=== PATIENT | male | born 1955 | race Caucasian/White ===

== ENCOUNTER 2021-05-26 11:15 | Outpatient (REF) | payer MEDICARE, SELFPAY | END 2021-05-26 11:16 | disposition home or self-care (01) | LOC: HO.LAB 11:15 | PROVIDERS: PCP Internal Medicine Medical Oncology; Visit Provider Internal Medicine Medical Oncology | DX: Z20.822 Contact with and (suspected) exposure to COVID-19 (principal) | CPT/HCPCS: C9803; U0003; U0005 ==

== ENCOUNTER → 2022-09-30 09:34 | Outpatient (BNVA) | payer MEDICARE, SELFPAY | PROVIDERS: PCP Internal Medicine Medical Oncology; Visit Provider Urology | DX: N48.6 Induration penis plastica (principal) | CPT/HCPCS: 99202 ==

== ENCOUNTER 2023-03-30 12:45 | Outpatient (AMB) | payer MEDICARE, SELFPAY ==
--- NOTE | 2023-03-30 13:05 | A.OFFVIS_ITS ---
Intake Intake Visit Reasons: 6m follow up Intake Note: Patient is present for Follow Up Urology Med: Pentoxifyline, tadalify Antibiotic Allergy:None Blood Thinner: None Allergies No Known Allergies Allergy (Verified 09/30/22 09:43) Medication List - Last Reconciled 03/30/23 by Waylon Luna MD metformin 500 mg PO DAILY tadalafil 5 mg PO DAILY 90 days trazodone mg PO vitamin E (dl, acetate) 450 mg PO DAILY 90 days HPI HPI Comments History of Present Illness Details Ibrahima is a very pleasant male. He is a patient of Dr. Munoz. 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 Overweight Tricuspid insufficiency Surgical History History of tricuspid valve replacement Review of Systems Const Denies chills and Denies fever(s) Card Reports no additional complaints and Denies syncope Resp Denies cough GI Denies abdominal pain and Denies heartburn Reports as per HPI and Denies change in libido Neuro Denies syncope Psych Denies change in libido Endo Denies change in libido Physical Exam Const General: cooperative, healthy appearing, comfortable and no acute distress Orientation/consciousness: patient oriented x3 HEENT Face and sinus: Yes normal facial exam Mouth: moist mucous membranes Neck Neck: Yes normal visual inspection, Yes full ROM and Yes trachea midline Chest Chest palpation & inspection: normal inspection of the chest Resp Effort & Inspection: normal respiratory effort, able to speak in complete sentences and no respiratory distress GI Inspection: Yes normal to inspection Back/Spine/Pelvis Cervical Spine: normal cervical lordosis Thoracic/Lumbar Spine: thoracic and lumbar spine normal to inspection Skin General skin exam: no rashes or lesions noted Neuro General: patient oriented x3, gait normal, tone normal and moves all extremities Extrem General: Yes normal to inspection and Yes capillary refill normal Assessment & Plan Assessment & Plan (1) Peyronie's disease: Code(s): N48.6 - Induration penis plastica (2) Erectile dysfunction: Code(s): N52.9 - Male erectile dysfunction, unspecified Plan Six month follow-up Medications: Refilled tadalafil 5 mg PO DAILY 90 days 90 tabs 1RF sexual activity N48.6 - Induration penis plastica Discontinued pentoxifylline ER Discontinued Reason: Doctor's Order 400 mg PO BID 90 days 180 tabs 1RF Patient Instructions: Imaging studies, laboratory and physical exam results were discussed and reviewed in detail. No major barriers to patient understanding were identified. An opportunity to ask questions regarding the treatment plan was provided. All questions were answered. The patient expressed understanding and agreement with the above treatment plan. The patient is aware they should contact our office by phone for worsening of their current condition or the appearance of new urologic symptoms. Compliance is encouraged with any medications and followup testing that is ordered. It is a privilege to participate in the urologic care of your patient. If you have any questions or concerns regarding treatment for the above conditions, or other urologic issues, please do not hesitate to contact me. The office telephone contact is [phone]. This note is constructed using voice recognition software. While every effort has been made to ensure accuracy loom changeover operator errors may have been included. Yours sincerely, Dr Waylon Luna MD, [facility] - Urology Providers of Expert, Compassionate Care for the Genitourinary System Coding Level of Care Code Est Pt Level 3 (10586) Diagnoses Peyronie's disease N48.6 Erectile dysfunction N52.9
== END 2023-03-30 14:43 | disposition home or self-care (01) ==
PROVIDERS: Visit Provider Urology
DX: N48.6 Induration penis plastica (principal); N52.9 Male erectile dysfunction, unspecified
CPT/HCPCS: 99213

== ENCOUNTER → 2023-03-30 12:45 | Outpatient (BNVA) | payer MEDICARE, SELFPAY | PROVIDERS: Visit Provider Urology | DX: N48.6 Induration penis plastica (principal); N52.9 Male erectile dysfunction, unspecified | CPT/HCPCS: 99212 ==

== ENCOUNTER 2023-09-30 13:33 | Outpatient (AMB) | payer MEDICARE, SELFPAY ==
--- NOTE | 2023-09-30 13:40 | A.OFFVIS_ITS ---
Intake Intake Visit Reasons: 6m follow up Intake Note: Patient is Present for Follow Up Urology Medication:Tadalafil Antibiotic Allergies: None Blood Thinners: None Allergies No Known Allergies Allergy (Verified 09/30/22 09:43) Medication List - Last Reconciled 09/30/23 by Waylon Luna MD metformin 500 mg PO DAILY tadalafil 5 mg PO DAILY 90 days trazodone mg PO vitamin E (dl, acetate) 450 mg PO DAILY 90 days HPI HPI Comments History of Present Illness Details Ibrahima is a very pleasant male. He is a patient of Dr. Munoz. 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 Colon polyps Overweight Hyperlipidemia Surgical History History of tricuspid valve replacement Review of Systems Const Denies chills and Denies fever(s) Card Reports no additional complaints and Denies syncope Resp Denies cough GI Denies abdominal pain and Denies heartburn Reports as per HPI and Denies change in libido Neuro Denies syncope Psych Denies change in libido Endo Denies change in libido Physical Exam Const General: cooperative, healthy appearing, comfortable and no acute distress Orientation/consciousness: patient oriented x3 HEENT Face and sinus: Yes normal facial exam Mouth: moist mucous membranes Neck Neck: Yes normal visual inspection, Yes full ROM and Yes trachea midline Chest Chest palpation & inspection: normal inspection of the chest Resp Effort & Inspection: normal respiratory effort, able to speak in complete sentences and no respiratory distress GI Inspection: Yes normal to inspection Back/Spine/Pelvis Cervical Spine: normal cervical lordosis Thoracic/Lumbar Spine: thoracic and lumbar spine normal to inspection Skin General skin exam: no rashes or lesions noted Neuro General: patient oriented x3, gait normal, tone normal and moves all extremities Extrem General: Yes normal to inspection and Yes capillary refill normal Assessment & Plan Assessment & Plan (1) Erectile dysfunction: Code(s): N52.9 - Male erectile dysfunction, unspecified (2) Peyronie's disease: Code(s): N48.6 - Induration penis plastica Plan Six-month follow-up tele Medications: Refilled tadalafil 5 mg PO DAILY 90 tabs 1RF sexual activity 90 days N48.6 - Induration penis plastica Patient Instructions: Imaging studies, laboratory and physical exam results were discussed and reviewed in detail. No major barriers to patient understanding were identified. An opportunity to ask questions regarding the treatment plan was provided. All questions were answered. The patient expressed understanding and agreement with the above treatment plan. The patient is aware they should contact our office by phone for worsening of their current condition or the appearance of new urologic symptoms. Compliance is encouraged with any medications and followup testing that is ordered. It is a privilege to participate in the urologic care of your patient. If you have any questions or concerns regarding treatment for the above conditions, or other urologic issues, please do not hesitate to contact me. The office telephone contact is [phone]. This note is constructed using voice recognition software. While every effort has been made to ensure accuracy brazing machine tender errors may have been included. Yours sincerely, Dr Waylon Luna MD, [facility] - Urology Providers of Expert, Compassionate Care for the Genitourinary System Coding Level of Care Code Est Pt Level 4 (45072) Diagnoses Erectile dysfunction N52.9 Peyronie's disease N48.6
== END 2023-09-30 14:07 | disposition home or self-care (01) ==
PROVIDERS: PCP Internal Medicine Medical Oncology; Visit Provider Urology
DX: N52.9 Male erectile dysfunction, unspecified (principal); N48.6 Induration penis plastica
CPT/HCPCS: 99213

== ENCOUNTER → 2023-09-30 13:33 | Outpatient (BNVA) | payer MEDICARE, SELFPAY | PROVIDERS: PCP Internal Medicine Medical Oncology; Visit Provider Urology | DX: N52.9 Male erectile dysfunction, unspecified (principal); N48.6 Induration penis plastica | CPT/HCPCS: 99212 ==

== ENCOUNTER 2024-04-03 09:51 | Outpatient (AMB) | payer MEDICARE, SELFPAY ==
--- NOTE | 2024-04-03 09:46 | A.OFFVIS_ITS ---
Intake Visit Reasons: 6M PSA/Testo(set) Intake Note: Patient is Present for 6m Follow Up and PSA/Testo Urology Medication:Tadalafil Antibiotic Allergies: None Blood Thinners: None Project Development Engineer Required: No Allergies No Known Allergies Allergy (Verified 04/03/24 09:47) HPI Comments Details: Ibrahima is a very pleasant male. He is a patient of Dr. Munoz. 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 Colon polyps Overweight Hyperlipidemia Surgical History History of tricuspid valve replacement Review of Systems Const All systems reviewed & are unremarkable except as noted in HPI and below Reports no additional complaints Resp Reports no additional complaints GI Reports no additional complaints Reports as per HPI Musc Reports no additional complaints Physical Exam Telemedicine evaluation Appropriate responses Regular breathing rate and rhythm HEENT Head: Yes normal to inspection Ears: hearing grossly normal bilaterally Eyes General: appearance normal, both eyes and all related structures Neck Neck: Yes normal visual inspection Chest Chest palpation & inspection: normal inspection of the chest Resp Effort & Inspection: normal respiratory effort and able to speak in complete sentences Telehealth Telehealth Telehealth Platform: [employer] Location of provider rendering services: practice address Location of patient: address on file Patient Identification confirmed using: Name, : Yes Telehealth method: video Patient verbally consented to treatment: Yes Patient verbally consented to billing insurance company: Yes Patient informed of any privacy concerns related to visit: Yes Minutes spent on Phone/Video with Pt.: 15 Assessment & Plan Assessment & Plan (1) Erectile dysfunction: Code(s): N52.9 - Male erectile dysfunction, unspecified Category: Medical (2) Peyronie's disease: Code(s): N48.6 - Induration penis plastica Category: Medical Plan Six-month follow-up Patient Instructions: Imaging studies, laboratory and physical exam results were discussed and reviewed in detail. No major barriers to patient understanding were identified. An opportunity to ask questions regarding the treatment plan was provided. All questions were answered. The patient expressed understanding and agreement with the above treatment plan. The patient is aware they should contact our office by phone for worsening of their current condition or the appearance of new urologic symptoms. Compliance is encouraged with any medications and followup testing that is ordered. It is a privilege to participate in the urologic care of your patient. If you have any questions or concerns regarding treatment for the above conditions, or other urologic issues, please do not hesitate to contact me. The office telephone contact is [phone]. This note is constructed using voice recognition software. While every effort has been made to ensure accuracy welfare administrator errors may have been included. Yours sincerely, Dr Waylon Luna MD, [facility] - Urology Providers of Expert, Compassionate Care for the Genitourinary System Coding Level of Care Code Tele Est Pt Level 3 (60100) Diagnoses Erectile dysfunction N52.9 Peyronie's disease N48.6
== END 2024-04-03 11:04 | disposition home or self-care (01) ==
LOC: HO.HUSH 09:51
PROVIDERS: PCP Internal Medicine Medical Oncology; Visit Provider Urology
DX: N52.9 Male erectile dysfunction, unspecified (principal); N48.6 Induration penis plastica
CPT/HCPCS: 99213

== ENCOUNTER → 2024-04-03 09:51 | Outpatient (BNVA) | payer MEDICARE, SELFPAY | PROVIDERS: PCP Internal Medicine Medical Oncology; Visit Provider Urology ==

== ENCOUNTER 2024-05-15 07:11 | Outpatient (REF) | payer MEDICARE, SELFPAY ==
--- NOTE | 2024-05-15 08:22 | W.PM.OPN ---
Operative Note Operative Note Date of Service: 05/15/24 Narrative: Preoperative diagnosis: Elevated PSA Postoperative diagnosis: Elevated PSA Procedure: 1. transrectal ultrasound measurement of prostate 2. transrectal ultrasound-guided pudendal nerve block 3. transrectal ultrasound-guided prostate biopsy 12 core Surgeon: Dr. Waylon Luna Anesthetic: 10cc 1% lidocaine Indications for procedure: Elevated PSA - PSA 27 persistent Counselling: Technical aspects, risks and benefits of proposed procedure were discussed in full. All questions have been answered, written consent has been obtained and patient agrees to proceed. Procedure: The patient was brought into the procedure area and placed in a left lateral decubitus position. Patient identity confirmed. Perioperative antibiotics confirmed. Safety pause time out performed. COLIN was performed to dilate rectal sphincter Iodine 10cc with 60 cc gel was placed per rectum to reduce infection risk using a catheter tip syringe. 8 Hz Ciaran rectal end-fire ultrasound probe was placed transrectally without difficulty. The prostate was visualized. Seminal vesicles were normal. Prostate margins were clearly demarcated. Bladder was seen superiorly. No cystic structures were noted Calcifications were noted at the surgical margin The prostate was otherwise heterogenous in nature - clear demarcation of peripheral zone. The prostate was measured in 3 dimensions Prostatic Width: 6.3 cm Prostatic Height: 4.4 cm Urethral Length: 6.6 cm Total volume equals : 80 ml An ultrasound-guided pudendal nerve block was performed using a 22 gauge spinal needle in the sagittal plane. 4 cc of 1% lidocaine placed at the junction of each seminal vesicle and 2 cc placed at the apex of the prostate. A 12 core biopsy was performed with 6 cores each side using an 18 gauge prostate biopsy gun. Two cores each were taken at the prostate apex, mid and base on each side. Cores were spaced between lateral and medial aspects. Each core was examined as placed on specimen foam as part of quality improvement consultant to ensure a minimum 1 cm of length and minimal discontinuity. He tolerated the procedure well with minimal rectal bleeding. Blood pressure remained stable following procedure. He was able to ambulate to bathroom after 5 minutes. Printed instructions regarding antibiotic use and common adverse events from the procedure such as low-grade temperature, potential infection and bleeding were given. He understands to call the office or go to an emergency room should any of these events arise. Pathology: 12 core prostate biopsy. CPT code 55077: Transrectal ultrasound; this is a diagnostic test for evaluation of the prostate and surrounding structures, looking for abnormalities or suspicious areas worrisome for cancer CPT code 76901: Biopsy, prostate; needle or punch, single or multiple, any approach CPT code 93915: Ultrasonic guidance for needle placement (eg, biopsy, aspiration, injection, localization device), imaging supervision and interpretation
== END 2024-05-15 07:12 | disposition home or self-care (01) ==
LOC: HO.US 07:11
PROVIDERS: PCP Internal Medicine Medical Oncology; Visit Provider Urology
DX: R97.20 Elevated prostate specific antigen [PSA] (principal)
CPT/HCPCS: 55700; 76942; 88305; 88344

== ENCOUNTER → 2024-05-15 07:11 | Outpatient (BNV) | payer MEDICARE, SELFPAY | PROVIDERS: PCP Internal Medicine Medical Oncology; Visit Provider Urology | DX: R97.20 Elevated prostate specific antigen [PSA] (principal) | CPT/HCPCS: 55700; 76872; 76942 ==

== ENCOUNTER 2024-05-29 14:01 | Outpatient (AMB) | payer MEDICARE, SELFPAY ==
--- NOTE | 2024-05-29 13:00 | A.OFFVIS_ITS ---
Intake Visit Reasons: Prostate biopsy results Allergies No Known Allergies Allergy (Verified 04/03/24 09:47) Medication List - Last Reconciled 05/29/24 by Waylon Luna MD levofloxacin 500 mg PO DAILY 3 days metformin 500 mg PO DAILY tadalafil 5 mg PO DAILY 90 days trazodone mg PO vitamin E (dl, acetate) 450 mg PO DAILY 90 days HPI Comments Details: Ibrahima is a very pleasant male. He is a patient of Dr. Munoz. He seen for the following urologic conditions - Peyronie's disease - erectile dysfunction - prostate cancer Telemedicine Evaluation 15 min Consultation [employer] Angelita Video attempted Diagnosis intermediate risk prostate cancer with high PSA Plan for prostate MRI with PET-CT staging Background carcinoid tumor Histologic grade: RBL 100%, RBM 50%, RML 30%, RMM 40% Redmond score: 4+3=7 % of pattern 4: 75% % of pattern 5: 0 Number cores positive: 4 Total number of cores: 12 % of tissue involved: Approximately 20% of all tissue examined Periprostatic fat inv.: Not identified Seminal vesicle inv.: Not identified Perineural inv.: Present LVI: Not identified Peyronie's disease Progressive with left bend on penis Sufficient for intercourse Decreased rigidity and does de tumescence rapidly Good response to antioxidant + low-dose PDE5 PFSH Medical History Tricuspid insufficiency 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 Colon polyps Overweight Hyperlipidemia Surgical History History of tricuspid valve replacement Review of Systems Const Denies chills and Denies fever(s) Card Reports no additional complaints and Denies syncope Resp Denies cough GI Denies abdominal pain and Denies heartburn Reports as per HPI and Denies change in libido Neuro Denies syncope Psych Denies change in libido Endo Denies change in libido Physical Exam Const General: cooperative, healthy appearing, comfortable and no acute distress Orientation/consciousness: patient oriented x3 HEENT Face and sinus: Yes normal facial exam Mouth: moist mucous membranes Neck Neck: Yes normal visual inspection, Yes full ROM and Yes trachea midline Chest Chest palpation & inspection: normal inspection of the chest Resp Effort & Inspection: normal respiratory effort, able to speak in complete sentences and no respiratory distress GI Inspection: Yes normal to inspection Back/Spine/Pelvis Cervical Spine: normal cervical lordosis Thoracic/Lumbar Spine: thoracic and lumbar spine normal to inspection Skin General skin exam: no rashes or lesions noted Neuro General: patient oriented x3, gait normal, tone normal and moves all extremities Extrem General: Yes normal to inspection and Yes capillary refill normal Telehealth Telehealth Telehealth Platform: [employer] Location of provider rendering services: practice address Location of patient: address on file Patient Identification confirmed using: Name, : Yes Telehealth method: video Patient verbally consented to treatment: Yes Patient verbally consented to billing insurance company: Yes Patient informed of any privacy concerns related to visit: Yes Minutes spent on Phone/Video with Pt.: 20 Assessment & Plan Assessment & Plan (1) Prostate cancer: Code(s): C61 - Malignant neoplasm of prostate Category: Medical Plan Imaging, 4 week follow-up Orders: Orders PET CT fusion skull to thigh 4 Weeks C61 - Malignant neoplasm of prostate MR pelvis wo/w con 4 Weeks C61 - Malignant neoplasm of prostate Patient Instructions: Imaging studies, laboratory and physical exam results were discussed and reviewed in detail. No major barriers to patient understanding were identified. An opportunity to ask questions regarding the treatment plan was provided. All questions were answered. The patient expressed understanding and agreement with the above treatment plan. The patient is aware they should contact our office by phone for worsening of their current condition or the appearance of new urologic symptoms. Compliance is encouraged with any medications and followup testing that is ordered. It is a privilege to participate in the urologic care of your patient. If you have any questions or concerns regarding treatment for the above conditions, or other urologic issues, please do not hesitate to contact me. The office telephone contact is [phone]. This note is constructed using voice recognition software. While every effort has been made to ensure accuracy hospital coordinator errors may have been included. Yours sincerely, Dr Waylon Luna MD, [facility] - Urology Providers of Expert, Compassionate Care for the Genitourinary System Coding Level of Care Code Tele Est Pt Level 4 (32548) Diagnoses Prostate cancer C61
== END 2024-05-29 14:43 | disposition home or self-care (01) ==
LOC: HO.HUSH 14:01
PROVIDERS: PCP Internal Medicine Medical Oncology; Visit Provider Urology
DX: C61 Malignant neoplasm of prostate (principal)
CPT/HCPCS: 99214

== ENCOUNTER → 2024-05-29 14:01 | Outpatient (BNVA) | payer MEDICARE, SELFPAY | PROVIDERS: PCP Internal Medicine Medical Oncology; Visit Provider Urology | DX: C61 Malignant neoplasm of prostate (principal) ==

== ENCOUNTER 2024-07-06 14:38 | Outpatient (AMB) | payer MEDICARE, SELFPAY ==
--- NOTE | 2024-07-06 14:38 | MHC.OFFVIS ---
Intake Visit Reasons: MRI discussion Intake Note: Patient is present for Telephone MRI discussion Patient's both Prostate MRI& PET CT cancelled due to heart leads Allergies No Known Allergies Allergy (Verified 04/03/24 09:47) Medication List - Last Reconciled 07/06/24 by Waylon Luna MD levofloxacin 500 mg PO DAILY 3 days metformin 500 mg PO DAILY tadalafil 5 mg PO DAILY 90 days trazodone mg PO vitamin E (dl, acetate) 450 mg PO DAILY 90 days HPI Comments Details: Ibrahima is a very pleasant male. He is a patient of Dr. Munoz. He seen for the following urologic conditions - Peyronie's disease - erectile dysfunction - prostate cancer Telemedicine Evaluation 15 min Consultation D[employer]GO[facility] Angelita Video attempted PET-CT and MRI was not performed secondary to question regarding cardiac lead Lead had been placed during open heart surgery in 01/29/2019 is not attached to a pacer Multiple published studies have shown that pacemaker leads placed after 2009 are safe for MRI Safety and Clinical Impact of MRI in Patients with Non?MRI-conditional Cardiac Devices Caitlin Drummond,?Eileen Ya?rey,?Sid Mathews,?Teo Rene, and?Maricarmen DaleedRadiology: Cardiothoracic Imaging?2020?2:5 Diagnosis intermediate risk prostate cancer with high PSA Plan for prostate MRI with PET-CT staging Background carcinoid tumor [facility] Placement - January 2019 - lead placed during open heart surgery Prostate Cancer 06/05 - Grade Group 3 with low volume disease Histologic grade: RBL 100%, RBM 50%, RML 30%, RMM 40% Vancouver score: 4+3=7 % of pattern 4: 75% % of pattern 5: 0 Number cores positive: 4 Total number of cores: 12 % of tissue involved: Approximately 20% of all tissue examined Periprostatic fat inv.: Not identified Seminal vesicle inv.: Not identified Perineural inv.: Present LVI: Not identified Peyronie's disease Progressive with left bend on penis Sufficient for intercourse Decreased rigidity and does de tumescence rapidly Good response to antioxidant + low-dose PDE5 PFSH Medical History (Updated 06/20/24 @ 15:10 by Waylon Luna MD) Prostate cancer Tricuspid insufficiency 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 Colon polyps Overweight Hyperlipidemia Surgical History History of tricuspid valve replacement Review of Systems Const All systems reviewed & are unremarkable except as noted in HPI and below Reports no additional complaints Resp Reports no additional complaints GI Reports no additional complaints Reports as per HPI Musc Reports no additional complaints Physical Exam Telemedicine evaluation Appropriate responses Regular breathing rate and rhythm HEENT Head: Yes normal to inspection Ears: hearing grossly normal bilaterally Eyes General: appearance normal, both eyes and all related structures Neck Neck: Yes normal visual inspection Chest Chest palpation & inspection: normal inspection of the chest Resp Effort & Inspection: normal respiratory effort and able to speak in complete sentences Telehealth Telehealth Telehealth Platform: [employer] Location of provider rendering services: practice address Location of patient: address on file Patient Identification confirmed using: Name, : Yes Telehealth method: video Patient verbally consented to treatment: Yes Patient verbally consented to billing insurance company: Yes Patient informed of any privacy concerns related to visit: Yes Minutes spent on Phone/Video with Pt.: 20 Assessment & Plan Assessment & Plan (1) Prostate cancer: Code(s): C61 - Malignant neoplasm of prostate Category: Medical (2) Peyronie's disease: Code(s): N48.6 - Induration penis plastica Category: Medical Plan Radiation oncology referral to [place] Obtain imaging Orders: Referrals Radiation Oncology Referral C61 - Malignant neoplasm of prostate Patient Instructions: Imaging studies, laboratory and physical exam results were discussed and reviewed in detail. No major barriers to patient understanding were identified. An opportunity to ask questions regarding the treatment plan was provided. All questions were answered. The patient expressed understanding and agreement with the above treatment plan. The patient is aware they should contact our office by phone for worsening of their current condition or the appearance of new urologic symptoms. Compliance is encouraged with any medications and followup testing that is ordered. It is a privilege to participate in the urologic care of your patient. If you have any questions or concerns regarding treatment for the above conditions, or other urologic issues, please do not hesitate to contact me. The office telephone contact is [phone]. This note is constructed using voice recognition software. While every effort has been made to ensure accuracy felting machine operator helper errors may have been included. Yours sincerely, Dr Waylon Luna MD, [facility] - Urology Providers of Expert, Compassionate Care for the Genitourinary System Coding Level of Care Code Tele Est Pt Level 3 (28088) Diagnoses Prostate cancer C61 Peyronie's disease N48.6
== END 2024-07-06 16:04 | disposition home or self-care (01) ==
LOC: HO.HUSH 14:38
PROVIDERS: PCP Internal Medicine Medical Oncology; Visit Provider Urology
DX: C61 Malignant neoplasm of prostate (principal); N48.6 Induration penis plastica
CPT/HCPCS: 99213

== ENCOUNTER → 2024-07-06 14:38 | Outpatient (BNVA) | payer MEDICARE, SELFPAY | PROVIDERS: PCP Internal Medicine Medical Oncology; Visit Provider Urology ==

== ENCOUNTER 2024-07-17 07:57 | Outpatient (REF) | payer MEDICARE, SELFPAY ==
--- NOTE | ~2024-07-17 | PE_ITS ---
EXAMINATION: Ga-68-PSMA -11 (ILLUCCIX) PET/CT CLINICAL INDICATION: Initial treatment management. Prostate cancer GGG 3 diagnosed on 05/15/2024 on prostate biopsy. PROCEDURE: Radiopharmaceutical: Ga-68-PSMA -11. Dose: 5.4 mCi injected in a left antecubital superficial vein. Image acquisition: 60 minutes following IV radiotracer administration, positron emission tomography was performed from the mid thighs to base of the skull. Non-contrast low-dose helical CT imaging was performed over the same range without breath-hold for attenuation correction of PET images and anatomic correlation. Total CT exam dose-length product 825.65 mGy-cm * These CT images were obtained using dose optimization techniques as appropriate, variously including the following: Automated exposure control * Adjustment of mA and/or kV according to patient size (this includes techniques or standardized protocols for targeted exams where dose is matched to indication/reason for exam; i.e. extremities or head) * Use of iterative reconstruction technique COMPARISON: Ultrasound-guided transrectal prostate biopsy done on 05/15/2024. Additional Clinical information: Surgery:None ; XRT: None ADT: None PSA: Unknown. Not provided. FINDINGS: SUV max REFERENCE: Blood: 2.3 (184/267). Liver: 11.0 (157/267). Parotid gland:14.8 (251/267). HEAD AND NECK: No abnormal radiotracer uptake. No large intracranial hemorrhage, acute territorial infarct or significant shift of midline structures within the visualized brain parenchyma. CHEST: Ports and Devices: Left-sided pacemaker device is present with leads overlying the pericardial space. Lungs: No abnormal radiotracer uptake. Pleura: No significant pleural effusion. Lymph Nodes: No tracer-avid mediastinal, hilar or internal mammary or axillary lymphadenopathy. Mediastinum: There is no significant pericardial effusion/thickening. Breasts/Chest Wall: No abnormal radiotracer uptake. ABDOMEN/PELVIS: Liver/Biliary System: Partially calcified as well as noncalcified focal lesions are present along the subdiaphragmatic surface of right lobe of the liver without any tracer activity likely represent old healed parenchymal lesions. Similar-appearing exophytic partially calcified hypodense mass is seen at the deep of the right lobe of the liver without any tracer activity, likely represent healed lesions. Please correlate clinically. The gallbladder is small and contracted, shows multiple ill-defined hypodensities, most consistent with cholelithiasis associated with chronic cholecystitis. No evidence of any biliary obstruction. Pancreas: Partially fatty replaced, otherwise unremarkable. Spleen: No abnormal radiotracer uptake. No evidence of splenomegaly. Adrenal Glands: No abnormal radiotracer uptake. Kidneys: No hydronephrosis, hydroureter or renal calculi bilaterally. Bowel: There is no significant bowel dilatation to suggest obstruction. Calcification versus postsurgical changes are noted at right mid abdomen involving the distal small bowel/adjacent large bowel. Lymph Nodes: No tracer avid retroperitoneal, mesenteric or pelvic and/or groin lymphadenopathy. Pelvic Organs: The urinary bladder is underdistended. Intense focal tracer avid disease is present from base to the apex of the gland at the right posterior peripheral zone with SUV max of 43.4, consistent with clinically known biopsy proved GGG 3 prostate adenocarcinoma (55/267). The superior most extent of the disease is abutting the ipsilateral seminal vesicle, accordingly possibility of T3 disease is suspected based on this imaging appearance. No evidence of any lateral pelvic wall or adjacent organ involvement seen. MUSCULOSKELETAL: No suspicious focal tracer avid disease. Postoperative changes of sternotomy. VASCULAR: Significant calcific atherosclerotic disease of the aorta including carotid and coronary arterial calcifications. Postop changes of CABG. THE SITE(S) OF MOST INTENSE PSMA AVIDITY AND SUV MAX: The site of primary disease involving the prostate with SUV max of 43.4. PET/PET CT fusion skull to thigh IMPRESSION: * Abnormal study. Intense focal tracer avid disease is present from base to the apex of the gland at the right posterior peripheral zone with SUV max of 43.4, consistent with clinically known biopsy proved GGG 3 prostate adenocarcinoma. The superior most extent of the disease is abutting the ipsilateral seminal vesicle, accordingly possibility of T3 disease is suspected based on this imaging appearance. No evidence of any lateral pelvic wall or adjacent organ involvement seen. * No evidence of any tracer avid regional or metastatic lymphadenopathy or osseous or visceral metastasis. * Incidental note is made of partially calcified as well as noncalcified focal lesions along the subdiaphragmatic surface of right lobe of the liver without any tracer activity likely represent old healed parenchymal lesions. Similar-appearing exophytic partially calcified hypodense mass is seen at the deep of the right lobe of the liver without any tracer activity, likely represent healed lesions. * The gallbladder is small and contracted, shows multiple ill-defined hypodensities, most consistent with cholelithiasis associated with chronic cholecystitis. No evidence of any biliary obstruction. * Significant calcific atherosclerotic disease of the aorta including carotid and coronary arterial calcifications. Postop changes of CABG. Electronically signed by: Romana Narvaez MD 07/25/2024 12:58 PM EST
== END 2024-07-17 07:58 | disposition home or self-care (01) ==
LOC: HO.PET 07:57
PROVIDERS: PCP Internal Medicine Medical Oncology; Visit Provider Urology
DX: Z13.89 Encounter for screening for other disorder (principal)

== ENCOUNTER 2024-07-23 09:09 | Outpatient (AMB) | payer MEDICARE, SELFPAY ==
--- NOTE | 2024-07-23 09:31 | AM.OFFVISNUR ---
Intake Visit Reasons: Firmagon 1st Injection(PA Set) Allergies No Known Allergies Allergy (Verified 04/03/24 09:47) Office Meds degarelix 120 mg subcutaneous solution Performing Provider: Waylon Luna MD [facility] Administered by: Seth Winchester LPN on 07/23/24 09:31 Dose Route Admin Location Dispensed Lot Number Expiration Date NDC Blood And Plasma Laboratory Assistant 240 mg subcut abdomen 240 mg [id number] 06/12/26 [address]-7 [facility] Assessment & Plan Assessment & Plan Orders: Orders AMB Degarelix Injection Practice Supplied Today C61 - Malignant neoplasm of prostate Medications: New degarelix 240 mg subcut ONCE 1 ea 0RF C61 - Malignant neoplasm of prostate
== END 2024-07-23 09:37 | disposition home or self-care (01) ==
PROVIDERS: PCP Internal Medicine Medical Oncology; Visit Provider Urology
DX: C61 Malignant neoplasm of prostate (principal)
CPT/HCPCS: 96402

== ENCOUNTER → 2024-07-23 09:09 | Outpatient (BNVA) | payer MEDICARE, SELFPAY | PROVIDERS: PCP Internal Medicine Medical Oncology; Visit Provider Urology | DX: C61 Malignant neoplasm of prostate (principal) | CPT/HCPCS: 96402; J9155 ==

== ENCOUNTER 2024-08-13 10:23 | Day surgery (SDC) | payer MEDICARE, SELFPAY ==
[2024-08-07 13:01] VITALS: BMI 28.9
--- NOTE | 2024-08-08 11:45 | P.CONAN_ITS ---
Documented by User: Sweta Mcnulty NP 08/08/24 11:50 HPI - Anesthesia Eval Consult details Narrative: 69yo M for Space OAR placement Carcinoid tumor with mets to liver Follows [facility] cardiology for hx tricuspid valve replacement 2018. 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 Colon polyps Overweight Hyperlipidemia Surgical History Surgical History (Updated 08/13/24 @ 10:56 by Justa Meier RN) H/O wisdom tooth extraction H/O endoscopy H/O colonoscopy History of surgery of liver History of tricuspid valve replacement Social History Social History Are you a primary plant health care technician to a significant other at home: No Do you presently have visiting nurse or other home services: No Patient Tobacco Use Status: Former Tobacco user Tobacco use type: Cigarette Cigarettes Per Day: 15 Years Smoked: 24 Smoked in Last 30 Days: No Use of substances other than those prescribed or required for medical reasons: No Have you been hit, kicked, punched, or otherwise hurt by someone within the past year? If so, by whom?: No Are you DNR?: No Advance Directives: No Advance Directives Information Provided: No Advance Directives on File: No Recently lost weight without trying: No How much weight loss: Not applicable Eating poorly because of decreased appetite: No Nutrition screen score: 0 Nutrition Risks: No Nutritional Risk Poor oral hygiene: Yes (upper full, lower partial) Meds Allergies Allergy/AdvReac Type Severity Reaction Status Date / Time No Known Allergies Allergy Verified 08/13/24 10:56 Home Medications ?Medication ?Instructions ?Recorded ?Confirmed ?Last Taken ?Type metformin 500 mg tablet 500 mg PO DAILY 09/27/22 08/13/24 08/12/24 History trazodone 100 mg tablet 100 mg PO BEDTIME PRN Sleep 09/27/22 08/13/24 Unknown History metoprolol succinate 50 mg 50 mg PO DAILY 08/13/24 08/13/24 08/12/24 History tablet,extended release 24 hr Exam Height,Weight and Vital Signs: Height 5 ft 11 in Weight 93.894 kg Pertinent Lab Results Pertinent Lab Results: CBC and BUN/Creat from outside facility 04/2024 [place] 01/2024 from outside facility [place] Narrative Narrative: ECHO 2023 Summary The left ventricular size is normal. The left ventricular wall thickness is mildly increased. The LV systolic function is normal . The left ventricular ejection fraction is 55-65 %. No obvious wall motion abnormalities seen on limited views. Left ventricular filling pressures are indeterminate. The aortic valve is trileaflet . The aortic valve appears mildly calcified. There is no aortic stenosis. There is no aortic regurgitation. The right ventricle is dilated. Right ventricular systolic function appears mildly reduced. There is a bioprosthetic valve in the tricuspid position. The mean gradient is 4 mm Hg. There is no significant tricuspid valve regurgitation. There is no significant pericardial effusion. There is an epicardial fat pad present. Comparison Comparison is made to the study report of February 17, 2022. There is no significant change. 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 Colon polyps Overweight Hyperlipidemia Family History Family history of problems with anesthesia: No Surgical History Surgical History (Updated 08/13/24 @ 10:56 by Justa Meier, RN) H/O wisdom tooth extraction H/O endoscopy H/O colonoscopy History of surgery of liver History of tricuspid valve replacement History of Problems with Anesthesia: No Social History Social History Are you a primary plant health care technician to a significant other at home: No Do you presently have visiting nurse or other home services: No Patient Tobacco Use Status: Former Tobacco user Tobacco use type: Cigarette Cigarettes Per Day: 15 Years Smoked: 24 Smoked in Last 30 Days: No Use of substances other than those prescribed or required for medical reasons: No Have you been hit, kicked, punched, or otherwise hurt by someone within the past year? If so, by whom?: No Are you DNR?: No Advance Directives: No Advance Directives Information Provided: No Advance Directives on File: No Recently lost weight without trying: No How much weight loss: Not applicable Eating poorly because of decreased appetite: No Nutrition screen score: 0 Nutrition Risks: No Nutritional Risk Poor oral hygiene: Yes (upper full, lower partial) Meds Allergies Allergy/AdvReac Type Severity Reaction Status Date / Time No Known Allergies Allergy Verified 08/13/24 10:56 Home Medications ?Medication ?Instructions ?Recorded ?Confirmed ?Last Taken ?Type metformin 500 mg tablet 500 mg PO DAILY 09/27/22 08/13/24 08/12/24 History trazodone 100 mg tablet 100 mg PO BEDTIME PRN Sleep 09/27/22 08/13/24 Unknown History metoprolol succinate 50 mg 50 mg PO DAILY 08/13/24 08/13/24 08/12/24 History tablet,extended release 24 hr Exam Airway Mallampati Class: II TM Dist: >3cm Neck ROM: Full Denture: Upper Partial: Lower Heart: rrr Lungs: cta Assessment and Plan Assessment Anesthesia Assessment: Anesthesia Plan Discussed Final Anesthetic Review Family History of Problems with Anesthesia: No History of Problems with Anesthesia: No NPO: Yes ASA Class: III Final Preanesthetic Review: No Changes in Pt Med Stat, Meds/Allgs Chart Reviewed and Consent Obtained/Reviewed Patient Risk: Low Procedure Risk: Low Anesthetic Plan Anesthetic Plan: MAC: Disposition: Standard PACU
[2024-08-13 10:59] VITALS: BP 156/93; PULSE 64; RESP 16; TEMP 36.4; O2SAT 98; BMI 27.1
[2024-08-13 11:13] LABS: Glucose, Whole Blood 145 mg/dL (60-115)
[2024-08-13] MEDS: Lactated Ringers 1,000 ML 100 ML IVCONT (11:26)
--- NOTE | 2024-08-13 12:40 | PC.NURSE ---
Patient sat on glasses in bed in preop. Ear pieces broke off. Per patient these glasses are cheap readers, I don't care if they are broken . Broken glasses put in patient labeled bag for him to take home.
--- NOTE | 2024-08-13 12:42 | MHC.SHP ---
Pre-Procedural Eval Section A - 24 Hr Update-Section A only Date of Service: 08/13/24 The patient is an INPATIENT: No Changes since office visit: No Cold of Flu in the past 2 weeks, No New Medical Problems, No Changes in Medication and No Patient answered all questions The patient has been examined within 24 hours of the surgical procedure. The History & Physical has been completed within 30 days and I have reviewed it.: Yes Section B - Complete if H&P > 30 days Chief Complaint: Malignant neoplasm of prostate Details of Present Illness: Intermediate risk low volume disease. Has decided to move ahead with external beam radiation. This will require space oar prostate/rectal gel plus fiducial coil placement. Visicoil 1 each lobe of prostate. He is aware of the risks and benefits Relevant Family History (Specify if Yes): No Relevant Social History: None Present Medications: see Short Stay Collaborative assessment Medical History: No relevant PMH History of Previous Operations: No relevant previous surgery Allergies: Allergies Allergy/AdvReac Type Severity Reaction Status Date / Time No Known Allergies Allergy Verified 08/13/24 10:56 Review of Systems Sugical H&P ROS: Negative: Constitution, Cardiovascular, Respiratory, Neurological, Psychiatric, Hem-Onc, Allergic/Immunologic, Gastrointestinal, Genitourinary, Musculoskeletal, Integumentary, Endocrine and Eyes/Ears/Nose/Throat Exam Surgical H&P Exam: Normal: HEENT, Normal: Heart, Normal: Lungs, Normal: Extremities, Normal: Abdomen, Normal: Skin and Normal: Neurological Plan Diagnosis/Plan: Unchanged (Viscoil placement and space oar gel) I have reviewed the history and physical and performed a pertinent physical examination on my patient. No changes have occurred unless specified. Time Spent With Patient Time: Total time managing care of this patient today ____ minutes.
--- NOTE | 2024-08-13 13:20 | P.OP_ITS ---
Operative Note Operative Note Date of Service: 08/13/24 Narrative: Preoperative diagnosis: Prostate cancer Postoperative diagnosis: Prostate cancer Procedure: 1. Transrectal ultrasound-guided perineal visicoil marker seed placement 2. Transrectal ultrasound-guided perineal SpaceOAR gel placement Surgeon: Dr. Waylon Luna Anesthetic: Sedation Indications for procedure: Prostate Cancer Procedure: After informed consent was verified, the patient was brought into the operating room and anesthesia was performed per protocol. The patient was placed in a modified dorsal lithotomy position. Gel was placed per rectum Ultrasound probe was placed per rectum. The prostate was visualized in sagittal and transverse dimensions. Local anesthetic was infiltrated in the perineal area using 10 cc of lidocaine Visicoil seed markers were placed in a transperineal fashion using ultrasound guidance 1 on the right - 1 toward mid gland. 1 on the left at mid gland. The purpose is for target triangulation. The 2nd part of the procedure was placement of SpaceOAR gel to allow consolidation for radiation delivery. The kit was prepared on the backtable with assembly of the 2 part solution and syringe delivery system. The delivery needle was advanced bevel down in the midline under ultrasound guidance to the apex of the prostate. It was advanced in the plane the prostate from the rectum to the midpoint of the prostate. Location was determined using sagittal and transverse imaging. At the midpoint of the prostate 1 cc of saline was placed to confirm needle position. Further injection saline was placed to confirm spread toward the base of the prostate. Position was confirmed and needle confirmed to be free from tenting of the rectum. With the needle in the confirmed position 10 cc of gel mixture was injected. This was perfformed over a target time of 15-20 seconds to allow for adequate sp read.. Good separation was seen of the rectum from the prostate space running in the midline from the base toward the apex of the prostate. Following completion of the procedure the probe was removed from the rectum. He tolerated the procedure well. He was extubated in the operating room and transferred in stable condition to the recovery area. Pathology none Drains none
[2024-08-13 13:25] VITALS: BP 145/79; PULSE 63; RESP 16; TEMP 36.3; O2SAT 96
[2024-08-13 13:30] VITALS: BP 147/79; PULSE 53; RESP 16; TEMP 36.3; O2SAT 96
[2024-08-13 13:35] VITALS: BP 142/77; PULSE 58; RESP 16; TEMP 36.3; O2SAT 96
[2024-08-13 13:40] VITALS: BP 137/72; PULSE 57; RESP 16; TEMP 36.3; O2SAT 96
[2024-08-13 13:45] VITALS: BP 138/78; PULSE 55; RESP 16; TEMP 36.3; O2SAT 96
== END 2024-08-13 14:19 | disposition home or self-care (01) ==
PROVIDERS: PCP Internal Medicine Medical Oncology; Visit Provider Urology
PROC: (CPT 55876; principal; 2024-08-13 12:30)
DX: C61 Malignant neoplasm of prostate (principal); N48.6 Induration penis plastica; N52.9 Male erectile dysfunction, unspecified; E34.00 Carcinoid syndrome, unspecified; C7B.02 Secondary carcinoid tumors of liver; I45.10 Unspecified right bundle-branch block; I10 Essential (primary) hypertension; E11.9 Type 2 diabetes mellitus without complications; E78.5 Hyperlipidemia, unspecified; Z95.2 Presence of prosthetic heart valve; Z79.899 Other long term (current) drug therapy; Z79.84 Long term (current) use of oral hypoglycemic drugs; Z87.891 Personal history of nicotine dependence
CPT/HCPCS: 55876; 55874; 82947; A4648; C1889; J1956; J2003; J2250; J2405; J2704; J3010

== ENCOUNTER → 2024-08-13 10:23 | Outpatient (BNV) | payer MEDICARE, SELFPAY | PROVIDERS: PCP Internal Medicine Medical Oncology; Visit Provider Urology | DX: C61 Malignant neoplasm of prostate (principal) | CPT/HCPCS: 55874; 55876; 76872 ==

== ENCOUNTER 2024-08-22 09:20 | Outpatient (AMB) | payer MEDICARE, SELFPAY ==
--- NOTE | 2024-08-22 09:59 | AM.OFFVISNUR ---
Intake Visit Reasons: Firmagon #2 Allergies No Known Allergies Allergy (Verified 08/13/24 10:56) Office Meds degarelix 80 mg subcutaneous solution Performing Provider: Waylon Luna MD [facility] [facility] [place] [facility] Administered by: Seth Winchester LPN on 08/22/24 09:59 Dose Route Admin Location Dispensed Lot Number Expiration Date [facility] Pipeline Maintenance Supervisor 80 mg subcut abdomen 80 mg [id number] 07/13/26 [address]-7 [facility] Assessment & Plan Assessment & Plan Orders: Orders AMB Degarelix Injection Practice Supplied Today C61 - Malignant neoplasm of prostate Medications: New degarelix 80 mg subcut ONCE 1 ea 0RF C61 - Malignant neoplasm of prostate
== END 2024-08-22 10:21 | disposition home or self-care (01) ==
PROVIDERS: PCP Internal Medicine Medical Oncology; Visit Provider Urology
DX: C61 Malignant neoplasm of prostate (principal)
CPT/HCPCS: 96402

== ENCOUNTER → 2024-08-22 09:20 | Outpatient (BNVA) | payer MEDICARE, SELFPAY | PROVIDERS: PCP Internal Medicine Medical Oncology; Visit Provider Urology | DX: C61 Malignant neoplasm of prostate (principal) | CPT/HCPCS: 96402; J9155 ==

== ENCOUNTER 2024-09-24 08:24 | Outpatient (AMB) | payer MEDICARE, SELFPAY ==
--- NOTE | 2024-09-24 08:35 | AM.OFFVISNUR ---
Intake Visit Reasons: Raynaagon(pa set) Allergies No Known Allergies Allergy (Verified 08/13/24 10:56) Office Meds degarelix 80 mg subcutaneous solution Performing Provider: Waylon Luna MD Performing Location[facility] [place] [facility] Administered by: Seth Winchester LPN on 09/24/24 08:35 Dose Route Admin Location Dispensed Lot Number Expiration Date NDC Teacher Dancing 80 mg subcut abdomen 80 mg [id number] 07/13/26 [address]-7 [facility] Assessment & Plan Assessment & Plan Orders: Orders AMB Degarelix Injection Practice Supplied Today C61 - Malignant neoplasm of prostate
== END 2024-09-24 08:50 | disposition home or self-care (01) ==
PROVIDERS: PCP Internal Medicine Medical Oncology; Visit Provider Urology
DX: C61 Malignant neoplasm of prostate (principal)
CPT/HCPCS: 96402

== ENCOUNTER → 2024-09-24 08:24 | Outpatient (BNVA) | payer MEDICARE, SELFPAY | PROVIDERS: PCP Internal Medicine Medical Oncology; Visit Provider Urology | DX: C61 Malignant neoplasm of prostate (principal) | CPT/HCPCS: 96402; J9155 ==

== ENCOUNTER 2024-10-30 08:44 | Outpatient (AMB) | payer MEDICARE, SELFPAY ==
--- NOTE | 2024-10-30 09:11 | AM.OFFVISNUR ---
Intake Visit Reasons: [place] Allergies No Known Allergies Allergy (Verified 08/13/24 10:56) Office Meds degarelix 80 mg subcutaneous solution Performing Provider: Waylon Luna MD [facility] Administered by: Seth Winchester LPN on 10/30/24 09:11 Dose Route Admin Location Dispensed Lot Number Expiration Date NDC Client Service Executive 80 mg subcut abdomen 80 mg [id number] 07/13/26 [address]-1 [facility] Assessment & Plan Assessment & Plan Orders: Orders AMB Degarelix Injection Practice Supplied Today C61 - Malignant neoplasm of prostate Medications: New degarelix 80 mg subcut ONCE 1 ea 0RF C61 - Malignant neoplasm of prostate Coding
--- OUTSIDE RECORDS SUMMARY | 2024-10-30 09:12 | XMS_ITS | Clinical Summary ---
Author Organization [facility] Address [address] [place] [id number] Care Team Providers Care Sourcing Analyst Name Role Phone Brandin Munoz MD Primary Care Provider [phone] Allergies No known active allergies Medications No known medications Social History Tobacco Use Types Packs/Day Years Used Date Smoking Tobacco: Never Assessed Sex and Gender Information Value Date Recorded Sex Assigned at Not on file Gender Identity Not on file Sexual Orientation Not on file Last Filed Vital Signs Vital Sign Reading Time Taken Comments Blood Pressure 161/89 07/10/2018 7:45 PM EDT Pulse 62 07/10/2018 7:45 PM EDT Temperature 36 ??C (96.8 ??F) 07/10/2018 6:39 PM EDT Respiratory Rate 16 07/10/2018 6:39 PM EDT Oxygen Saturation 99% 07/10/2018 6:39 PM EDT Inhaled Oxygen Concentration - - Weight 84.4 kg (186 lb) 07/10/2018 6:39 PM EDT Height - - Body Mass Index - - Plan of Treatment Health Maintenance Due Date Last Done Comments Hepatitis C Screening 1955 COVID-19 Vaccine (#1) 1955 Depression Screening 1968 Preventative Health Evaluation 02/21/1974 DTap / Tdap / Td (1 - Tdap) 02/21/1975 Colon Cancer Screening (Colonoscopy) 02/21/2001 Shingrix-Zoster Vaccine (1 of 2) 02/21/2006 Fall Risk Assessment 02/21/2021 Pneumococcal Vaccine (1 of 1 - PCV) 02/21/2021 Influenza Vaccine (#1) 2024 RSV Adult > 60+ Yrs or Pregn ant (1 - 1-dose 75+ series) 02/21/2031 Hepatitis B Vaccines Aged Out No long er eligible based on patient's age to complete this topic RSV Ped < 20 months Aged Out No longe r eligible based on patient's age to complete this topic Care Teams Sourcing Analyst Relationship Specialty Start Date End Date Brandin Munoz MD [address] [id number] PCP - General Oncology 07/10/18
--- OUTSIDE RECORDS SUMMARY | 2024-10-30 09:12 | XMS_ITS | Clinical Summary ---
Author Organization [facility] ity Address [address] [place] [address] Care Team Providers Care Digital Developer Name Role Phone Brandin Munoz MD Primary Care Provider [phone] Social History Tobacco Use Types Packs/Day Years Used Date Smoking Tobacco: Never Assessed Sex and Gender Information Value Date Recorded Sex Assigned at Not on file Legal Sex Male 2:01 AM EST Gender Identity Not on file Sexual Orientation Not on file Plan of Treatment Health Maintenance Due Date Last Done Comments DTaP,Tdap,and Td Vaccines (1 - Tdap) 02/21/1975 Pneumococcal Vaccine: 50+ Ye ars (1 of 1 - PCV) 02/21/2006 Zoster Vaccines (1 of 2) 02/21/2006 COVID-19 Vaccine ( - 2023-2 5 season) 2024 Influenza Vaccine (#1) 2024 RSV Immunization Patients 60 + Years Old (1 - 1-dose 75+ series) 02/21/2031 HIB Vaccines Aged Out No longer eligi ble based on patient's age to complete this topic HPV Vaccines Aged Out No longer eligi ble based on patient's age to complete this topic Hepatitis A Vaccines Aged Out No long er eligible based on patient's age to complete this topic Hepatitis B Vaccines Aged Out No long er eligible based on patient's age to complete this topic IPV Vaccines Aged Out No longer eligi ble based on patient's age to complete this topic MMR Vaccines Aged Out No longer eligi ble based on patient's age to complete this topic Meningococcal ACWY Vaccine Aged Out N o longer eligible based on patient's age to complete this topic Meningococcal B Vacine Aged Out No lo nger eligible based on patient's age to complete this topic RSV Immunization Patients Un carmine 20 months Aged Out No longer eligible b ased on patient's age to complete this topic Varicella Vaccines Aged Out No longer eligible based on patient's age to complete this topic Care Teams Digital Developer Relationship Specialty Start Date End Date Brandin Munoz MD PCP - General Oncology 07/10/18
--- OUTSIDE RECORDS SUMMARY | 2024-10-30 09:12 | XMS_ITS | Clinical Summary ---
Author Organization [facility] Address [address] [place] [address] Care Team Providers Care Law Professor Name Role Phone Unavailable Primary Care Provider Unavailabl e Allergies No known active allergies Medications Medication Sig Dispensed Refills Start Date End Date Status acetaminophen (TYLENOL) 325 MG tablet Take 975 mg by mouth 4 (four) times a day as needed for mild pain. 02/04/2019 Active amiODARONE (PACERONE) 200 MG tablet Take 200 mg by mouth 2 (two) times a day. Active aspirin 81 MG chewable tablet Chew 81 mg daily. Ac tive docusate sodium (COLACE) 100 MG capsule Take 100 mg by mouth 2 (two) times a day. Active furosemide (LASIX) 20 MG tablet Take 20 mg by mouth daily. 02/04/2019 Active metoPROLOL TARTRATE (LOPRESSOR) 25 MG tablet Take 25 mg by mouth 3 (three) times a day. Active oxyCODONE (ROXICODONE) 5 MG immediate release tablet Take 5 mg by mouth 4 times daily (every 6 hours) as needed for moderate pain or severe pain. Active potassium chloride (K-TAB) 20 MEQ CR tablet Take 20 mEq by mouth daily. 02/04/2019 Active atorvastatin (LIPITOR) 40 MG tablet Take 40 mg by mouth daily. Active lanreotide (SOMATULINE DEPOT) 60 MG/0.2ML Solution injection Inject 60 mg under the skin every 28 days (4 weeks). does injection at office Active Social History Tobacco Use Types Packs/Day Years Used Date Smoking Tobacco: Never Assessed Sex and Gender Information Value Date Recorded Sex Assigned at Not on file Gender Identity Not on file Sexual Orientation Not on file Last Filed Vital Signs Vital Sign Reading Time Taken Comments Blood Pressure 124/76 2019 3:58 PM EDT Pulse 60 2019 3:58 PM EDT Temperature 36.2 ??C (97.2 ??F) 2019 3:58 PM ED T Respiratory Rate 16 2019 3:58 PM EDT Oxygen Saturation 98% 02/16/2019 1:30 PM EDT Inhaled Oxygen Concentration - - Weight - - Height - - Body Mass Index - - Plan of Treatment Health Maintenance Due Date Last Done Comments Hepatitis C Virus Screening 1955 DTaP/Tdap/Td Vaccines (1 - Tdap) 02/21/1975 Colonoscopy 02/21/2001 Pneumococcal Vaccines 50+ (1 of 1 - PCV) 02/21/2006 Zoster (Shingles) Vaccine (1 of 2) 02/21/2006 Influenza Vaccine 04/12/2024 COVID-19 Vaccine ( - 2023-2 5 season) 2024 RSV Vaccine 60 years and old er and Patients (1 - 1-dose 75+ series) 02/21/2031 Hepatitis B Vaccines Aged Out No long er eligible based on patient's age to complete this topic
--- OUTSIDE RECORDS SUMMARY | 2024-10-30 09:12 | XMS_ITS ---
Author Organization Brandin Munoz III, MD Address [address] [place] [address] [place] [address] Care Team Providers Care Wedding Designer Name Role Phone Brandin Munoz Primary Care Provider REASON FOR VISIT Message Social History Sex Assigned At : Social History Observation Description Sex Assigned At Male Encounters Encounter Location Date Provider Diagnosis Brandin Munoz III, MD [address] [place] [address] [place] [address] 08/23/2024 Brandin Munoz Plan Of Treatment Next Appt Details Provider Name:Brandin Munoz, 11/05/2024 10:00:00 AM, [address] [place] [address] [place], [address], Provider Name:Brandin Munoz, 12/05/2024 10:15:00 AM, [address] [facility], [address], Provider Name:Brandin Munoz, 01/07/2025 11:00:00 AM, [address] [facility], [address], Provider Name:Brandin Munoz, 02/12/2025 10:30:00 AM, [address] [facility], [address], Provider Name:Brandin Munoz, 04/09/2025 02:00:00 PM, [address] [facility], [address], Progress Notes * Ibrahima HESSDOB:[birth year] (69 yo M)Acc No.[id number]:08/23/2024 Patient:?Da HESS :1955???Age:69 Y???Sex:Male Address:[address] [address], [place] [address] * true * Date:? Generated for Gabyi jaqueline/Jaylene/eTransmitting on:?10/30/2024 09:11 AM EST
--- OUTSIDE RECORDS SUMMARY | 2024-10-30 09:12 | XMS_ITS | Encounter Summary ---
Author Organization [facility] Address [address] [place] [address] Care Team Providers Care Ticket Sales Supervisor Name Role Phone Unavailable Primary Care Provider Unavailabl e Encounter Details Date Type Department Care Team (Late st Contact Info) Description 02/19/2019 Telephone [facility] at Home [address] [address] Pcp, [address] [place] [address] Social History Tobacco Use Types Packs/Day Years Used Date Smoking Tobacco: Never Assessed Sex and Gender Information Value Date Recorded Sex Assigned at Not on file Gender Identity Not on file Sexual Orientation Not on file documented as of this encounter Plan of Treatment Not on file documented as of this encounter Visit Diagnoses Not on filedocumented in this encounter
--- OUTSIDE RECORDS SUMMARY | 2024-10-30 09:12 | XMS_ITS ---
Author Organization Brandin Munoz III, MD Address [address] [place] [address] DR [place], [place] [id number] Care Team Providers Care Telephone Cleaner Name Role Phone Brandin Munoz Primary Care Provider Allergies Allergen (clinical drug ingredient) Drug/Non Drug Allergy documented on EMR Reaction Allergy Type Onset Date Status No Known Drug Allergy Unknown Drug Allergy Active REASON FOR VISIT sandosatin LAR injection, Recently diagnoosed early-sstage prostate cancer, Metastatic malignant carcinoid tumor, Carcinoid syndrome, Hypertension, Repaired Tricuspid insufficiency, Diabetes, Benign prosthetic hhypertrophy, Hyperlipidemia Medications Medication SIG (Take, Route, Frequency, Duration) Notes Start Date End Date Status metFORMIN HCl 500 MG TAKE ONE TABLET BY MOUTH EVERY DAY Active Atorvastatin Calcium 40 MG Oral Active SandoSTATIN LAR Depot 30 MG as directed Intramuscular 30mg every 4 weeks 03/08/2023 Active traZODone HCl 100 MG TAKE 1&1/2 TABLETS BY MOUTH AT BEDTIME FOR 90 DAYS Active Metoprolol Succinate ER 50 MG TAKE 1 TABLET (25 MG) BY MOUTH ONCE A DAY Orally Once a day Active Social History Tobacco Use: Social History Observation Description Date Details (start date - stop date) Former Smoker NA - NA Sex Assigned At : Social History Observation Description Sex Assigned At Male Tobacco Use/Smoking Question Answer Notes Patient is a former smoker How long has it been since you last smoked? > 10 years Additional Findings: Tobacco Non-User Ex-cigaret te smoker Vital Signs Temperature 97.0 degrees Fahrenheit 08/31/20 24 Blood pressure systolic 137 mm Hg 08/31/20 24 Blood pressure diastolic 82 mm Hg 024 Heart Rate 58 /min 08/31/2024 Height 71 in 08/31/2024 Weight 199 lbs 08/31/2024 BMI 27.75 kg/m2 08/31/2024 Encounters Encounter Location Date Provider Diagnosis Brandin Munoz III, MD [address] [place] [address] [place] [address] 08/31/2024 Brandin Munoz Carcinoid tumor D3A. 00 ; Carcinoid syndrome E34.0 ; Overweight E66.3 ; Type 2 diabetes mellitus without complication, without long-term current use of insulin E11.9 ; Former smoker Z87.891 ; Essential hypertension I10 ; Non-rheumatic tricuspid valve insufficiency I36.1 ; Dupuytrens contracture M72.0 ; BPH (benign prostatic hyperplasia) N40.0 and Prostate cancer C61 Assessments Encounter Date Diagnosis (ICD Code) Assessment Notes Treat ment Notes Treatment Clinical Notes 08/31/2024 Carcinoid tumor (ICD-10 - D3A.00) His chromogranin Is slightly lower at 1635. He was treated today with Sandostatin. He has had no symptoms of carcinoid syndrome. He received a 30 mg intramuscular injection of Sandostatin LAR depot in the upper outer quadrant of the left buttock today. 08/31/2024 Carcinoid syndrome (ICD-10 - E34.0) He has occasional diarrhea but is working full-time. His syndrome is well controlled with the octreotide. 08/31/2024 Overweight (ICD-10 - E66.3) His body mass index is 27.75. He has lost 1 pound and weighs 199. We discussed his weight loss strategy and his diet and his nutrition. We made a plan to lose weeight at a rate of one half of a pound per week. 08/31/2024 Type 2 diabetes mellitus without complication, without long-term current use of insulin (ICD-10 - E11.9) He has been compliant with his medicationns. His glucose is usually below 150. II have ordeered a hemoglobbin A1c and miicroalbumin to be donne in the near future. 08/31/2024 Former smoker (ICD-10 - Z87.891) He is highly motivated not to smoke. We have discussed a plan for prevention of relapse and maintenance of abstinence. 08/31/2024 Essential hypertension (ICD-10 - I10) His blood pressure is currently 137/82. His body mass index is 28. We had a long discussion about sodium restriction and weight loss as a way to reduce his systolic blood pressure. 08/31/2024 Non-rheumatic tricuspid valve insufficiency (ICD-10 - I36.1) His now seems to be functioning normally. He has no cardiac complaints at this time. 08/31/2024 Dupuytrens contracture (ICD-10 - M72.0) He has early and mild tendon contractures in the palms of both hands. It is noted he recently had an episode of paralysis disease, which has resolved. 08/31/2024 BPH (benign prostatic hyperplasia) (ICD-10 - N40.0) He has been rising from sleep once or twice a night to urinate. We have discussed lifestyle modification as a means of controlling nocturia. 08/31/2024 Prostate cancer (ICD-10 - C61) He is waiiting on the PET CT scan. When that is available his urollogist will recommend deefinitive treatment. He is currently asymptomatic. Plan Of Treatment Medication Medication Name Sig Start Date Stop Date Notes metFORMIN HCl 500 MG TAKE ONE TABLET BY MOUTH EVERY DAY Atorvastatin Calcium 40 MG Oral SandoSTATIN LAR Depot 30 MG as directed Intramuscular 30mg every 4 weeks 03/08/2023 traZODone HCl 100 MG TAKE 1&1/2 TABLETS BY MOUTH AT BEDTIME FOR 90 DAYS Metoprolol Succinate ER 50 MG TAKE 1 TAB LET (25 MG) BY MOUTH ONCE A DAY Orally Once a day Pending Test Test Name Order Date PROFILE, FASTING (COMPREHENSIVE METABOLI C) 08/31/2024 CBC WITH AUTO DIFF 08/31/2024 Uric Acid 08/31/2024 Lipid Panel 08/31/2024 Chromogranin A 08/31/2024 Hemoglobin A1c 08/31/2024 Next Appt Details Follow Up: 4 Weeks, Reason: OV Provider Name:Brandin Munoz, 11/05/2024 10:00:00 AM, [address] [place] [address] [place], [phone], Provider Name:Brandin Munoz, 12/05/2024 10:15:00 AM, [address] [place] [address] [place], [phone], Provider Name:Brandin Munoz, 01/07/2025 11:00:00 AM, [address] [place] [address] [address] [place], [place], [phone], Provider Name:Brandin Rogersrne, 02/12/2025 10:30:00 AM, [address] [place] [address] [address] [place], [place], [phone], Provider Name:Brandin Rogersrne, 04/09/2025 02:00:00 PM, [address] [place] [address] [address] [place], [place], [phone], Procedure Notes * Category Sub-Category Detail Notes Injection Dose 20 MG Route IM Site left buttock Given by Dr. Munoz Injected: Sandostatin Progress Notes * Ibrahima HESSDOB:[birth year] (69 yo M)Acc No.[id number]:08/31/2024 Patient:?HESSDa ISABEL Provider:?Brandin Munoz MD :[id number]???Age:69 Y???Sex:Male Ernesto e:08/31/2024 Address:[address], [id number] Subjective: * Chief Complaints: * ???sandosatin LAR injectionR ecently diagnoosed early-sstage prostate cancerMetastatic malignant carcinoid tumorCarcinoid syndromeHypertensionRepaired Tricuspid insufficiencyDiabetesBenign prosthetic hhypertrophyHyperlipidemia * HPI: ???COVID-19 Screening:?He returns to the office for his monthly injection of octreotide 30 mg depot injection.? He had a recent CT scan the abdomen ordered by Dr. Tariq at [facility].? This showed decrease in the size of the 2 dominant lesions which were negative on the recent PET CT scan.? It showed 2 new small lesions.? There was no adenopathy.? He is asymptomatic and feels well. 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 His examination today was unremarkable.? Is going to begin radiation therapy for the prostate cancer.? He was uncertain whether or not he had received androgen deprivation therapy.? Was treated today without difficulty.? He received a 30 mg injection Sandostatin LAR depot in the upper outer quadrant of the lleft buttock without complications.? He will return in one month for the same. Blood work done August 24, 2024 showed white count 6.7 hematocrit 43.9 platelets 193 leukosis 168 BUN 15 creatinine 0.82 GFR 96 chromogranin 1635. ?Questions?Have you had any new onset fever, chills, cough, congestion, sore throat, shortness of breath, muscle aches??No * ROS:?General/Constitutional:?pain?only normal aches and pains.?Chills?denies.?Fatigue?admits.?Fever?denies.?ENT:?Decreased hearing?denies.?Respiratory:?Cough?denies.?Cardiovascular:?Chest pain with exertion?denies.?Dyspnea on exertion?denies.?Shortness of breath?Resolved.?Gastrointestinal:?Constipation?denies.?Decreased appetite?denies.?Diarrhea?that is infrequent.?Heartburn?denies.?Nausea?denies.?Rectal bleeding?denies.?Vomiting?denies.?Hematology:?bruising?denies.?petechiae?denies.?Swollen glands?none have been noted.?Genitourinary:?Frequent urination?once a night.?Musculoskeletal:?Muscle aches?denies.?Painful joints?denies.?Sciatica?denies.?Weakness?denies.?Skin:?Itching?denies.?Rash?denies.?Skin lesion(s)?denies.?Neurologic:?Difficulty speaking?denies.?Dizziness?denies.?Headache?denies.?Low back pain?denies.?Psychiatric:?Depressed mood?denies.? * Medical History:? * Surgical History:?tricuspid valve replacement, Dr. Bueno, [facility] 01/2019Dental extraction 11/2021Hepatic tumor embolization Radioactive peptide therapy No history * Hospitalization/Major Diagno stic Procedure:?DYSPNEA ON EXERTION 01/2019No history * Family History:?Father: dece ased 48 yrs, myocardial infarct.?Mother: 80 yrs, ovarian cancer, diagnosed with Cancer.?Spouse: alive 65 yrs, stroke,, pancreatic cancer.?2 brother(s) - healthy. 1 son(s) , 1 daughter(s) - healthy. .? His children are well but are adopted. His first from pancreatic cancer in 2011.He is not aware of any family history of mental illness or addiction or substance use disorder. * Social History:?Tobacco Use:?Tobacco Use/Smoking?Patient is a?former smoker ?How long has it been since you last smoked??> 10 years ?Additional Findings: Tobacco Non-User?Ex-cigarette smoker ???He was born in [place].He had been for 18 years to Alba who recently had a stroke and pancrearit cancer. They have 2 children. He works at [employer]. His Alba ofcancer of the pancreas. He marrieicesar Caroline January 18, 2009. * Medications:?TakingMetoprolo l Succinate ER 50 MG Tablet Extended Release 24 Hour TAKE 1 TABLET (25 MG) BY MOUTH ONCE A DAY Orally Once a day SandoSTATIN LAR Depot 30 MG Kit as directed Intramuscular 30mg every 4 weeks traZODone HCl 100 MG Tablet TAKE 1&1/2 TABLETS BY MOUTH AT BEDTIME FOR 90 DAYS metFORMIN HCl 500 MG Tablet TAKE ONE TABLET BY MOUTH EVERY DAY Atorvastatin Calcium 40 MG Tablet Oral Medication List reviewed and reconciled with the patientTaking Metoprolol Succinate ER 50 MG Tablet Extended Release 24 Hour TAKE 1 TABLET (25 MG) BY MOUTH ONCE A DAY Orally Once a day Taking SandoSTATIN LAR Depot 30 MG Kit as directed Intramuscular 30mg every 4 weeks Taking traZODone HCl 100 MG Tablet TAKE 1&1/2 TABLETS BY MOUTH AT BEDTIME FOR 90 DAYS Taking metFORMIN HCl 500 MG Tablet TAKE ONE TABLET BY MOUTH EVERY DAY Taking Atorvastatin Calcium 40 MG Tablet Oral Medication List reviewed and reconciled with the patient * Allergies:?No Known Drug All ergyno[Allergies Verified] Objective: * Vitals:?Ht: 71, Wt:199, BMI: 27.75, BP:137/82, HR:58, Temp:97.0, Wt-k.26. * ???Past Orders: ???Lab:Glucose, Whole Blood (Order Date - 08/13/2024) (Collection Date & Time - 08/13/2024 11:07 AM) ? Value Reference Range ?Glucose, Whole Blood 145 H 60-115 - mg/dL ???Imaging:PET CT fusion sku ll to thigh (Order Date - 07/17/2024) (Performed Date - 07/17/2024) * Examination: ???General Examination: ?GENERAL APPEARANCE:?pleasant, well nourished, well developed, in no acute distress, calm and relaxed, overweight, man.?HEAD:?atraumatic, normocephalic.?EYES:?eomi, perrla, anicteric, conjugate.?EARS:?normal.?NOSE:?septum intact.?ORAL CAVITY:?normal, unremarkable.?NECK/THYROID:?no jugular venous distention, no carotid bruit, thyroid normal.?LYMPH NODES:?no enlarged lymph nodes,spleen normal.?SKIN:?no suspicious lesions, anicteric.?HEART:?no clicks, gallops, murmurs, or rubs, regular rhythm, S1, S2 normal, no s3, or vascular bruits, Healeed vertical midline is sternal incision.?LUNGS:?clear to auscultation .?BREASTS:??no masses palpable bilaterally.?ABDOMEN:?bowel sounds normal, no ascites, no organomegaly, no mass, overweight, Liver edge unremarkable.?RECTAL EXAM:?not examined.?MUSCULOSKELETAL:?extremities unremarkable, no clubbing, cyanosis or edema, Bilateral Dupuytren's contracture of the hhands.?PERIPHERAL PULSES:?normal.?NEUROLOGIC:?alert and oriented, cranial nerves 2-12 grossly intact, deep tendon reflexes 2+ symmetrical, motor strength normal upper and lower extremities, sensory exam intact.?PSYCH:?alert, oriented.? Assessment: * Assessment: 1.?Carcinoid tumor - D3A.00 (Primary)???Notes :His chromogranin Is slightly lower at 1635. He was treated today with Sandostatin. He has had no symptoms of carcinoid syndrome. He received a 30 mg intramuscular injection of Sandostatin LAR depot in the upper outer quadrant of the left buttock today.???2.?Carcinoid syndrome - E34.0???Notes :He has occasional diarrhea but is working full-time.? His syndrome is well controlled with the octreotide.???3.?Overweight - E66.3???Notes :His body mass index is 27.75.? He has lost 1 pound and weighs 199.? We discussed his weight loss strategy and his diet and his nutrition.? We made a plan to lose weeight at a rate of one half of a pound per week.???4.?Type 2 diabetes mellitus without complication, without long-term current use of insulin - E11.9???Notes :He has been compliant with his medicationns.? His glucose is usually below 150.? II have ordeered a hemoglobbin A1c and miicroalbumin to be donne in the near? future.???5.?Former smoker - Z87.891???Notes :He is highly motivated not to smoke. We have discussed a plan for prevention of relapse and maintenance of abstinence.???6.?Essential hypertension - I10???Notes :His blood pressure is currently 137/82. His body mass index is 28. We had a long discussion about sodium restriction and weight loss as a way to reduce his systolic blood pressure.???7.?Non-rheumatic tricuspid valve insufficiency - I36.1???Notes :His now seems to be functioning normally. He has no cardiac complaints at this time.???8.?Dupuytrens contracture - M72.0???Notes :He has early and mild tendon contractures in the palms of both hands. It is noted he recently had an episode of paralysis disease, which has resolved.???9.?BPH (benign prostatic hyperplasia) - N40.0???Notes :He has been rising from sleep once or twice a night to urinate. We have discussed lifestyle modification as a means of controlling nocturia.???10.?Prostate cancer - C61???Notes :He is waiiting on the PET CT scan.? When that is available his urollogist will recommend deefinitive treatment.? He is currently asymptomatic.??? Plan: * Treatment: 2.?Carcinoid syndrome?LAB: PROFILE, FASTING (COMPREHENSIVE METABOLIC) ?LAB: CBC WITH AUTO DIFF ?LAB: Uric Acid ?LAB: Lipid Panel ?LAB: Chromogranin A ?LAB: Hemoglobin A1c 3.?Overweight?LAB: PROFILE, FASTING (COMPREHENSIVE METABOLIC) ?LAB: CBC WITH AUTO DIFF ?LAB: Uric Acid ?LAB: Lipid Panel ?LAB: Chromogranin A ?LAB: Hemoglobin A1c 4.?Type 2 diabetes mellitus without complication, without long-term current use of insulin?LAB: PROFILE, FASTING (COMPREHENSIVE METABOLIC) ?LAB: CBC WITH AUTO DIFF ?LAB: Uric Acid ?LAB: Lipid Panel ?LAB: Chromogranin A ?LAB: Hemoglobin A1c 5.?Others? Continue Metoprolol Succinate ER Tablet Extended Release 24 Hour, 50 MG, TAKE 1 TABLET (25 MG) BY MOUTH ONCE A DAY, Orally, Once a day;?Continue traZODone HCl Tablet, 100 MG, TAKE 1&1/2 TABLETS BY MOUTH AT BEDTIME FOR 90 DAYS;?Continue metFORMIN HCl Tablet, 500 MG, TAKE ONE TABLET BY MOUTH EVERY DAY.?? * Procedures:?Injection:?Injected:?Sandostatin.?Dose?20 MG.?Route?IM.?Site?left buttock.?Given by?Dr. Munoz.? * Procedure Codes:?48914 THER/ PROPH/DIAG INJ, SC/[id number] Octreotide injection, depot * Preventive Medicine:? ??Counseling:?Care goal follow-up plan:?Counseling for abnormal BMI given?Yes ?Above Normal BMI Follow-up?Dietary management education, guidance, and counseling, Dietary needs education ?Smoking/Tobacco Use?Patient counseled on the dangers of tobacco use and urged to quit.?08/31/2024 ??DM Care Plan:?Patient Lifestyle Goals?Patient wants to be able to manage diabetes without too much effort.?Treatment Goals?HbA1C < 7.0, Blood Sugars less than < 115.?Barriers?no barriers.?Self-Managment Goals?Work on weight loss, with a goal of losing 1 lb per week.? * Follow Up:?4 Weeks (Reason: OV) * Images: * Sign off status: Completed true * Provider:?Brandin Munoz MD Date:?08/13 Generated for Noah parsons/Jaylene/Lisaitting on:?10/30/2024 09:12 AM EST History and Physical Notes * HPI (History of Present Illness) Category Sub-Category Detail Notes COVID-19 Screening Questions Have you had any new onset fever, chills, cough, congestion, sore throat, shortness of breath, muscle aches?: No Examination Category Sub-Category Detail Notes General Examination GENERAL APPEARANCE: pleasant , well nourished, well developed, in no acute distress, calm and relaxed, overweight, man HEAD: atraumatic, normocep halic EYES: eomi, perrla, anicte jameson, conjugate EARS: normal NOSE: septum intact NECK/THYROID: no jugular venous di stention, no carotid bruit, thyroid normal HEART: no clicks, gallops, murmurs, or rubs, regular rhythm, S1, S2 normal, no s3, or vascular bruits, Healeed vertical midline is sternal incision LUNGS: clear to auscultatio n ABDOMEN: bowel sounds normal, no ascites, no organomegaly, no mass, overweight, Liver edge unremarkable NEUROLOGIC: alert and oriented, cranial nerves 2-12 grossly intact, deep tendon reflexes 2+ symmetrical, motor strength normal upper and lower extremities, sensory exam intact SKIN: no suspicious lesion s, anicteric PERIPHERAL PULSES: normal BREASTS: no masses palpable b ilaterally MUSCULOSKELETAL: extremities unremark able, no clubbing, cyanosis or edema, Bilateral Dupuytren's contracture of the hhands LYMPH NODES: no enlarged lymph no elan,spleen normal RECTAL EXAM: not examined PSYCH: alert, oriented ORAL CAVITY: normal, unremarkable
--- OUTSIDE RECORDS SUMMARY | 2024-10-30 09:12 | XMS_ITS ---
Author Organization Brandin Munoz III, MD Address [address] [place] [address] [place] [address] Care Team Providers Care Strength And Conditioning Coach Name Role Phone Alexander Brandin Primary Care Provider REASON FOR VISIT Metastatic carcinoid tumor, Prostate cancer, Skin lesion left forehead, History of tricuspid insufficiency, Diabetes, Hypertension, Benign prostatic hypertrophy Medications Medication SIG (Take, Route, Frequency, Duration) Notes Start Date End Date Status Atorvastatin Calcium 40 MG Oral Active metFORMIN HCl 500 MG TAKE ONE TABLET BY MOUTH EVERY DAY Active traZODone HCl 100 MG TAKE 1&1/2 TABLETS BY MOUTH AT BEDTIME FOR 90 DAYS Active SandoSTATIN LAR Depot 30 MG as directed Intramuscular 30mg every 4 weeks 03/08/2023 Active Metoprolol Succinate ER 50 MG TAKE [...] Additional Findings: Tobacco Non-User Ex-cigaret te smoker Problems Problem Type SNOMED Code ICD Code Onset Dates Problem Status W/U Status Risk Notes Problem [id number] Leukopenia, unspecified type (D72.819) Active confirmed His mild leukopenia with a white count of 3900 is due to the radiation therapy effect on the pelvic marrow. This value will be observed. Vital Signs Temperature 97.2 degrees Fahrenheit 10/03/19 25 Blood pressure systolic 127 mm Hg 10/03/19 25 Blood pressure diastolic 71 mm Hg 025 Heart Rate 58 /min 10/03/2024 Height 71 in 10/03/2024 Weight 201 lbs 10/03/2024 BMI 28.03 kg/m2 10/03/2024 Encounters Encounter Location Date Provider Diagnosis Brandin Munoz III, MD [address] [place] [address] DR [place], [place] [address] 10/03/2024 Brandin Munoz Carcinoid tumor D3A. 00 ; Carcinoid syndrome E34.0 ; Peyronie's disease N48.6 ; Type 2 diabetes mellitus without complication, without long-term current use of insulin E11.9 ; Prostate cancer C61 ; Non-rheumatic tricuspid valve insufficiency I36.1 ; Overweight E66.3 ; Dupuytrens contracture M72.0 ; BPH (benign prostatic hyperplasia) N40.0 ; Former smoker Z87.891 ; Leukopenia, unspecified type D72.819 and Mixed hyperlipidemia E78.2 Assessments Encounter Date Diagnosis (ICD Code) Assessment Notes Treat ment Notes Treatment Clinical Notes 10/03/2024 Carcinoid tumor (ICD-10 - D3A.00) His chromogranin Is slightly higher at 1831.He was treated today with Sandostatin. He has had no symptoms of carcinoid syndrome. He received a 30 mg intramuscular injection of Sandostatin LAR depot in the upper outer quadrant of the right buttock today.He saw his medical oncologist yesterday and a CT scan is planned in November 2024. The patient's understanding is that if that CAT scan shows disease progression as well as the most recent therapy for the carrcinoid will be resumed.He received an injection of 30 mg of depot octreotide in the upper outer quadrant of the right buttock today without complication. 10/03/2024 Carcinoid syndrome (ICD-10 - E34.0) He has only an occasional episode of diarrhea maybe twice a week. He has had no flushing or sweating. He denies any pain. Current therapy was continued. 10/03/2024 Peyronie's disease (ICD-10 - N48.6) This problem has stabilized and does not impair his function. Observation alone continues. He is under the care of urology. 10/03/2024 Type 2 diabetes mellitus without complication, without long-term current use of insulin (ICD-10 - E11.9) He has been compliant with all of his medication. His hemoglobin A1c is 7.6. No change in his therapy was necessary today. He is consuming a healthy diet. 10/03/2024 Prostate cancer (ICD-10 - C61) He is senior living through his radiation therapy at [facility]. So far he has very few symptoms from the radiation. He denies any rectal pain or diarrhea or dysuria. He has no hematuria. He will continue radiation daily. 10/03/2024 Non-rheumatic tricuspid valve insufficiency (ICD-10 - I36.1) His now seems to be functioning normally. He has no cardiac complaints at this time. 10/03/2024 Overweight (ICD-10 - E66.3) His body mass index is 27.75. He has lost 1 pound and weighs 199. We discussed his weight loss strategy and his diet and his nutrition. We made a plan to lose weeight at a rate of one half of a pound per week. 10/03/2024 Dupuytrens contracture (ICD-10 - M72.0) He has early and mild tendon contractures in the palms of both hands. It is noted he recently had an episode of paralysis disease, which has resolved. 10/03/2024 BPH (benign prostati c hyperplasia) (ICD-10 - N40.0) He has been rising from sleep once or twice a night to urinate. We have discussed lifestyle modification as a means of controlling nocturia. 10/03/2024 Former smoker (ICD-1 0 - Z87.891) He is highly motivated not to smoke. We have discussed a plan for prevention of relapse and maintenance of abstinence. 10/03/2024 Leukopenia, unspecified type (ICD-10 - D72.819) His mild leukopenia with a white count of 3900 is due to the radiation therapy effect on the pelvic marrow. This value will be observed. 10/03/2024 Mixed hyperlipidemia (ICD-10 - E78.2) The current fasting lipid profile shows excellent control of his lipids. No change in his regimen is necessary. Plan Of Treatment Medication Medication Name Sig Start Date Stop Date Notes Atorvastatin Calcium 40 MG Oral metFORMIN HCl 500 MG TAKE ONE TABLET BY MOUTH EVERY DAY traZODone HCl 100 MG TAKE 1&1/2 TABLETS BY MOUTH AT BEDTIME FOR 90 DAYS SandoSTATIN LAR Depot 30 MG as directed Intramuscular 30mg every 4 weeks 03/08/2023 Metoprolol Succinate ER 50 MG TAKE 1 TAB LET (25 MG) BY MOUTH ONCE A DAY Orally Once a day Pending Test Test Name Order Date PROFILE, FASTING (COMPREHENSIVE METABOLI C) 10/03/2024 CBC WITH AUTO DIFF 10/03/2024 Lipid Panel 10/03/2024 Testosterone, Total 10/03/2024 Microalbumin, Random 10/03/2024 Hemoglobin A1c 10/03/2024 Next Appt Details Follow Up: 4 /2 week, November 30, Reason: Sandostatin LAR depot inj review labs, To discuss the results of the CAT scan and decide on a treatment plan. Provider Name:Brandin Munoz, 11/05/2024 10:00:00 AM, [address] [place] [address] [address], [place], [phone], Provider Name:Brandin Munoz, 12/05/2024 10:15:00 AM, [address] [place] [address] [address], [place], [address], Provider Name:Brandin Munoz, 01/07/2025 11:00:00 AM, [facility] [place], [place], [address], Provider Name:Brandin Munoz, 02/12/2025 10:30:00 AM, [address] [place] [address] [address] [place], [place], [address], Provider Name:Brandin Munoz, 04/09/2025 02:00:00 PM, [address] [place] [address] [address], [place], [address], Procedure Notes * Category Sub-Category Detail Notes Injection Dose 30 mg Route IM Site right buttock Given by Dr. Munoz Injected: Sandostatin LAR Depo t 30 mg (4526-3449-76) Progress Notes * Albin HESS:02/10 (69 yo M)Acc No.[id number]:10/03/2024 Patient:?Da HESS Provider:?Brandin Munoz MD :1955???Age:69 Y???Sex:Male Ernesto e:10/03/2024 Address:[address] [place], [place], [id number] Subjective: * Chief Complaints: * ???Metastatic carcinoid tumo rProstate cancerSkin lesion left foreheadHistory of tricuspid insufficiencyDiabetesHypertensionBenign prostatic hypertrophy * HPI: ???COVID-19 Screening:? ask yesterday,? chromo inc and new spot,? 11/[address], may need rx, ablation v radioactive peptide. ?Questions?Have you had any new onset fever, chills, cough, congestion, sore throat, shortness of breath, muscle aches??No ???:?The patient, a 69-year-old male, reported that his chronograph had increased and that there was a spot in his liver. He mentioned that he had seen another doctor the previous day who had informed him of these findings. The patient was aware of a plan to have a CAT scan and potential treatment options, including ablation procedures or radioactive peptide. The patient had previously undergone ablation seven years ago for large tumors. He reported that he was sick for four to five days following the procedure but did not specify the severity of his symptoms. The patient seemed to be considering the ablation procedure again, as the current issue in his liver is about 1/2 an inch and not life-threatening. Blood work done September 26, 2024 showed white count 3.9 hematocrit 39 platelets 159 glucose 120 BUN 16 creatinine 0.93 hemoglobin A1c 7.6 total cholesterol 166 triglycerides 84 HDL 47 and LDL 103 chromogranin 1831 uric acid 4.3. * ROS:?General/Constitutional:?pain?only normal aches and pains.?Chills?denies.?Fatigue?admits.?Fever?denies.?ENT:?Decreased hearing?denies.?Respiratory:?Cough?denies.?Cardiovascular:?Chest pain with exertion?denies.?Dyspnea on exertion?denies.?Shortness of breath?denies.?Gastrointestinal:?Constipation?denies.?Decreased appetite?denies.?Diarrhea?denies.?Heartburn?occasional.?Nausea?denies.?Rectal bleeding?denies.?Vomiting?denies.?Hematology:?bruising?denies.?petechiae?denies.?Swollen glands?none have been noted.?Genitourinary:?Frequent urination?twice a night.?Musculoskeletal:?Muscle aches?denies.?Painful joints?denies.?Sciatica?denies.?Weakness?denies.?Skin:?Itching?denies.?Rash?denies.?Skin lesion(s)?denies.?Neurologic:?Difficulty speaking?denies.?Dizziness?denies.?Headache?denies.?Low back pain?denies.?Psychiatric:?Depressed mood?denies.? * Medical History:? * Surgical History:?tricuspid valve replacement, Dr. Bueno, [facility] 01/2019Dental extraction 11/2021Hepatic tumor embolization Radioactive [...] Tobacco Non-User?Ex-cigarette smoker ???He was born in [place].He had been for 18 years to Alba who recently had a stroke and pancrearit cancer. They have 2 children. He works at [employer]. His Alba ofcancer of the pancreas. He tonny Velazquez January 18, 2009. * Medications:?TakingMetoprolo l Succinate [...] List reviewed and reconciled with the patient Objective: * Vitals:?Ht: 71, Wt:201, BMI: 28.03, BP:127/71, HR:58, Temp:97.2, Wt-k.17. * ???Past Orders: ???Lab:Glucose, Whole Blood (Order [...] S1, S2 normal, no s3, or vascular bruits.?LUNGS:?clear to auscultation .?BREASTS:??no masses palpable bilaterally.?ABDOMEN:?bowel sounds normal, no ascites, The liver edge is nodular and palpable.?RECTAL EXAM:?not examined.?MUSCULOSKELETAL:?extremities unremarkable, no clubbing, cyanosis or edema.?PERIPHERAL PULSES:?normal.?NEUROLOGIC:?alert and oriented, cranial nerves 2-12 grossly intact, deep tendon reflexes 2+ symmetrical, motor strength normal upper and lower extremities, sensory exam intact.?PSYCH:?alert, oriented, thought process logical, goal directed, speech clear, mood/affect full range, good eye contact, cooperative with exam.? Assessment: * Assessment: 1.?Carcinoid tumor - D3A.00 (Primary)???Notes :His chromogranin Is slightly higher at 1831.He was treated today with Sandostatin. He has had no symptoms of carcinoid syndrome. He received a 30 mg intramuscular injection of Sandostatin LAR depot in the upper outer quadrant of the right buttock today.He saw his medical oncologist yesterday and a CT scan is planned in November 2024.? The patient's understanding is that if that CAT scan shows disease progression as well as the most recent therapy for the carrcinoid will be resumed.He received an injection of 30 mg of depot octreotide in the upper outer quadrant of the right buttock today without complication.???2.?Carcinoid syndrome - E34.0???Notes :He has only an occasional episode of diarrhea maybe twice a week.? He has had no flushing or sweating.? He denies any pain.? Current therapy was continued.???3.?Peyronie's disease - N48.6???Notes :This problem has stabilized and does not impair his function.? Observation alone continues.? He is under the care of urology.???4.?Type 2 diabetes mellitus without complication, without long-term current use of insulin - E11.9???Notes :He has been compliant with all of his medication.? His hemoglobin A1c is 7.6.? No change in his therapy was necessary today.? He is consuming a healthy diet.???5.?Prostate cancer - C61???Notes :He is senior living through his radiation therapy at [facility].? So far he has very few symptoms from the radiation.? He denies any rectal pain or diarrhea or dysuria.? He has no hematuria.? He will continue radiation daily.???6.?Non-rheumatic tricuspid valve insufficiency - I36.1???Notes :His now seems to be functioning normally. He has no cardiac complaints at this time.???7.?Overweight - E66.3???Notes :His body mass index is 27.75. He has lost 1 pound and weighs 199. We discussed his weight loss strategy and his diet and his nutrition. We made a plan to lose weeight at a rate of one half of a pound per week.???8.?Dupuytrens contracture - M72.0???Notes :He has early and mild tendon contractures in the palms of both hands. It is noted he recently had an episode of paralysis disease, which has resolved.???9.?BPH (benign prostatic hyperplasia) - N40.0???Notes :He has been rising from sleep once or twice a night to urinate. We have discussed lifestyle modification as a means of controlling nocturia.???10.?Former smoker - Z87.891???Notes :He is highly motivated not to smoke. We have discussed a plan for prevention of relapse and maintenance of abstinence.???11.?Leukopenia, unspecified type - D72.819???Notes :His mild leukopenia with a white count of 3900 is due to the radiation therapy effect on the pelvic marrow.? This value will be observed.???12.?Mixed hyperlipidemia - E78.2???Notes :The current fasting lipid profile shows excellent control of his lipids.? No change in his regimen is necessary.??? Plan: * Treatment: 2.?Carcinoid syndrome?LAB: PROFILE, FASTING (COMPREHENSIVE METABOLIC) ?LAB: CBC WITH AUTO DIFF ?LAB: Lipid Panel ?LAB: Testosterone, Total ?LAB: Microalbumin, Random ?LAB: Hemoglobin A1c 3.?Peyronie's disease?LAB: PROFILE, FASTING (COMPREHENSIVE METABOLIC) ?LAB: CBC WITH AUTO DIFF ?LAB: Lipid Panel ?LAB: Testosterone, Total ?LAB: Microalbumin, Random ?LAB: Hemoglobin A1c 4.?Type 2 diabetes mellitus without complication, without long-term current use of insulin?LAB: PROFILE, FASTING (COMPREHENSIVE METABOLIC) ?LAB: CBC WITH AUTO DIFF ?LAB: Lipid Panel ?LAB: Testosterone, Total ?LAB: Microalbumin, Random ?LAB: Hemoglobin A1c 5.?Prostate cancer?LAB: PROFILE, FASTING (COMPREHENSIVE METABOLIC) ?LAB: CBC WITH AUTO DIFF ?LAB: Lipid Panel ?LAB: Testosterone, Total ?LAB: Microalbumin, Random ?LAB: Hemoglobin A1c 6.?Others? Continue Metoprolol Succinate ER Tablet Extended Release 24 Hour, 50 MG, TAKE 1 TABLET (25 MG) BY MOUTH ONCE A DAY, Orally, Once a day;?Continue traZODone HCl Tablet, 100 MG, TAKE 1&1/2 TABLETS BY MOUTH AT BEDTIME FOR 90 DAYS;?Continue metFORMIN HCl Tablet, 500 MG, TAKE ONE TABLET BY MOUTH EVERY DAY.?? * Procedures:?Injection:?Injected:?Sandostatin LAR Depot 30 mg ([id number]).?Dose?30 mg.?Route?IM.?Site?right buttock.?Given by?Dr. Munoz.? * Procedure Codes:?[id number] Octre otide injection, [id number] CHEMO, ANTI-NEOPL, SQ/IM * Preventive Medicine:? ??Counseling:?Care goal follow-up plan:?Counseling for abnormal BMI given?Yes ?Above Normal BMI Follow-up?Dietary management education, guidance, and counseling, Dietary needs education ?Smoking/Tobacco Use?Patient counseled on the dangers of tobacco use and urged to quit.?10/03/2024 ??DM Care Plan:?Patient Lifestyle Goals?Patient wants to be able to manage diabetes without too much effort.?Treatment Goals?HbA1C < 7.0, Blood Sugars less than < 115.?Barriers?no barriers.?Self-Managment Goals?Work on weight loss, with a goal of losing 1 lb per week, Increase exercise to 3 times a week for 30 mins, Stop drinking juice and/or soda, replace with more water.? * Follow Up:?09/13 week, November 30 (Reason: Sandostatin LAR depot inj review labs, To discuss the results of the CAT scan and decide on a treatment plan.) * Images: * Sign off status: Completed true * Provider:?Brandin Munoz MD Date:?09/13 Generated for Noah parsons/Jaylene/eTransmitting on:?10/30/2024 09:12 AM EST History and Physical [...] S1, S2 normal, no s3, or vascular bruits LUNGS: clear to auscultatio n ABDOMEN: bowel sounds normal, no ascites, The liver edge is nodular and palpable NEUROLOGIC: alert and oriented, cranial nerves 2-12 grossly intact, deep tendon reflexes 2+ symmetrical, motor strength normal upper and lower extremities, sensory exam intact SKIN: no suspicious lesion s, anicteric PERIPHERAL PULSES: normal BREASTS: no masses palpable b ilaterally MUSCULOSKELETAL: extremities unremark able, no clubbing, cyanosis or edema LYMPH NODES: no enlarged lymph no elan,spleen normal RECTAL EXAM: not examined PSYCH: alert, oriented, tho ught process logical, goal directed, speech clear, mood/affect full range, good eye contact, cooperative with exam ORAL CAVITY: normal, unremarkable
--- OUTSIDE RECORDS SUMMARY | 2024-10-30 09:12 | XMS_ITS | Encounter Summary ---
Author Organization [facility] Address [address] [place] [address] Care Team Providers Care Slaughterer Religious Ritual Name Role Phone Unavailable Primary Care Provider Unavailabl e Encounter Details Date Type Department Care Team (Late st Contact Info) Description 02/09/2019 Telephone [facility] at Home [address] [address] Pcp, [address] [place] [address] Social History Tobacco Use Types Packs/Day Years [...]
== END 2024-10-30 09:42 | disposition home or self-care (01) ==
PROVIDERS: PCP Internal Medicine Medical Oncology; Visit Provider Urology
DX: C61 Malignant neoplasm of prostate (principal)

== ENCOUNTER → 2024-10-30 08:44 | Outpatient (BNVA) | payer MEDICARE, SELFPAY | PROVIDERS: PCP Internal Medicine Medical Oncology; Visit Provider Urology | DX: C61 Malignant neoplasm of prostate (principal) | CPT/HCPCS: 96402; J9155 ==

== ENCOUNTER 2024-11-30 08:41 | Outpatient (AMB) | payer MEDICARE, SELFPAY ==
--- NOTE | 2024-11-30 08:45 | AM.OFFVISNUR ---
Intake Visit Reasons: Raynaagon(PA Set) Allergies No Known Allergies Allergy (Verified 08/13/24 10:56) Office Meds degarelix 80 mg subcutaneous solution Performing Provider: Waylon Luna MD [place]forming [place] [place] [facility] Administered by: Seth Winchester LPN on 11/30/24 08:45 Dose Route Admin Location Dispensed Lot Number Expiration Date NDC Print Press Operator 80 mg subcut abdomen 80 mg [id number] 07/13/26 [address]-9 [facility] Assessment & Plan Assessment & Plan Orders: Orders AMB Degarelix Injection Practice Supplied Today C61 - Malignant neoplasm of prostate Medications: New degarelix 80 mg subcut ONCE 1 ea 0RF C61 - Malignant neoplasm of prostate Coding
--- OUTSIDE RECORDS SUMMARY | 2024-11-30 08:55 | XMS_ITS ---
Author Name CRISP Organization Unknown Care Team Organization Name Specialty Phone Email Start Date End Da te SES [employer] 11/15/2023 02/12/2024 [facility] [place] CCDA 023 [facility] [place] ADT 04/22/20 23
--- OUTSIDE RECORDS SUMMARY | 2024-11-30 08:55 | XMS_ITS ---
Author Organization Brandin Munoz III, MD Address [address] [place] [address] [place] [address] Care Team Providers Care Boring Machine Operator Double End Name Role Phone Brandin Munoz Primary Care Provider [phone] REASON FOR VISIT Rx Social History Sex Assigned At : Social History Observation Description Sex Assigned At Male Encounters Encounter Location Date Provider Diagnosis Brandin Munoz III, MD [address] [place] [address] [place] [address] 11/12/2024 Brandin Munoz Plan Of Treatment Next Appt Details Provider Name:Brandin Munoz, 12/05/2024 10:15:00 AM, [address] [place] [address] [place], [address], Provider Name:Brandin Munoz, 01/07/2025 11:00:00 AM, [address] [place] [address] [place], [address], Provider Name:Brandin Munoz, 02/12/2025 10:30:00 AM, [address] [place] [address] [place], [address], Provider Name:Brandin Munoz, 04/09/2025 02:00:00 PM, [address] [place] [address] [place], [address], Progress Notes * Albin HESS:02/10 (69 yo M)Acc No.[id number]:11/12/2024 Patient:?Da HESS Number:[id number] :1955???Age:69 Y???Sex:Male Address:[address] [address], [place] [address] * true * Date:? Generated for Noah parsons/Jaylene/eTnemosmitting on:?11/30/2024 08:55 AM EDT
--- OUTSIDE RECORDS SUMMARY | 2024-11-30 08:55 | XMS_ITS ---
Author Organization Brandin Munoz III, MD Address [address] [place] [address] [place] [address] Care Team Providers Care Women'S Lacrosse Coach Name Role Phone Brandin Munoz Primary Care Provider [phone] REASON FOR VISIT Needs call back from Social History Sex Assigned At : Social History Observation Description Sex Assigned At Male Encounters Encounter Location Date Provider Diagnosis Brandin Munoz III, MD [address] [place] [address] [place] [address] 11/15/2024 Brandin Munoz Plan Of Treatment Next Appt Details Provider Name:Brandin Munoz, 12/05/2024 10:15:00 AM, [address] [place] [address] [place], [address], Provider Name:Brandin Munoz, 01/07/2025 11:00:00 AM, [address] [place] [address] [place], [address], Provider Name:Brandin Munoz, 02/12/2025 10:30:00 AM, [address] [place] [address] [place], [address], Provider Name:Brandin Munoz, 04/09/2025 02:00:00 PM, [address] [place] [address] [place], [address], Progress Notes * Ibrahima HESSDOB:[birth year] (69 yo M)Acc No.[id number]:11/15/2024 Patient:?HESSDa ISABEL :1955???Age:69 Y???Sex:Male Address:[address] [address], [place] [address] * true * Date:? Generated for Noah parsons/Jaylene/eTransmitting on:?11/30/2024 08:55 AM EDT
--- OUTSIDE RECORDS SUMMARY | 2024-11-30 08:55 | XMS_ITS | Clinical Summary ---
Author Organization [facility] Address [address] [place] [address] Care Team Providers Care Fitter'S Assistant Name Role Phone rBandin Munoz MD Primary Care Provider [phone] Allergies No known active allergies Medications No [...] age to complete this topic Care Teams Fitter'S Assistant Relationship Specialty Start Date End Date Brandin Munoz MD [address] [id number] PCP - General Oncology 07/10/18
--- OUTSIDE RECORDS SUMMARY | 2024-11-30 08:56 | XMS_ITS | Clinical Summary ---
Author Organization [facility] Address [address] [place] [address] Care Team Providers Care Outside Laborer Name Role Phone Brandin Munoz MD Primary Care Provider [phone] Social History Tobacco Use Types Packs/Day Years [...] age to complete this topic Care Teams Outside Laborer Relationship Specialty Start Date End Date Brandin Munoz MD PCP - General Oncology 07/10/18
--- OUTSIDE RECORDS SUMMARY | 2024-11-30 08:56 | XMS_ITS ---
Author Organization Brandin Munoz III, MD Address [address] [place] [address] [place] [address] Care Team Providers Care Area Coordinator Name Role Phone Brandin Munoz Primary Care Provider Medications Medication SIG (Take, Route, Fr equency, Duration) Notes Start Date End Date Status traZODone HCl 150 MG 1 tablet at bedtime Orally Once a day for 90 days 11/15/2024 Active Social History Sex Assigned At : Social History Observation Description Sex Assigned At Male Encounters Encounter Location Date Provider Diagnosis Brandin Munoz III, MD [address] [place] [address] [place] [address] 11/15/2024 Brandin Munoz Plan Of Treatment Medication Medication Name Sig Start Date Stop Date Notes traZODone HCl 150 MG 1 tablet at bedtime Orally Once a day for 90 days 11/15/2024 Next Appt Details Provider Name:Brandin Munoz, 12/05/2024 10:15:00 AM, [address] [place] [address] [place], [phone], Provider Name:Brandin Munoz, 01/07/2025 11:00:00 AM, [address] [place] [address] [place], [address], Provider Name:Brandin Munoz, 02/12/2025 10:30:00 AM, [address] [place] [address] [place], [address], Provider Name:Brandin Munoz, 04/09/2025 02:00:00 PM, [address] [facility] [address], [facility] [place], [address], Progress Notes * Albin HESS:[birth year]10 (69 yo M)Acc No.[id number]:11/15/2024 Patient:?Da HESS :1955???Age:69 Y???Sex:Male Address:[address] [address] * Refills? Start traZODone HCl Tablet, 150 MG, Orally, 90 Tablet, 1 tablet at bedtime, Once a day, 90 days, Refills=3 * true * Date:? Generated for Noah parsons/Jaylene/Lisaitting on:?11/30/2024 08:55 AM EDT
--- OUTSIDE RECORDS SUMMARY | 2024-11-30 08:56 | XMS_ITS | Encounter Summary ---
Author Organization [facility] Address [address] [place] [address] Care Team Providers Care Arborist Climber Name Role Phone Unavailable Primary Care Provider Unavailabl e Encounter Details Date Type Department Care Team (Late st Contact Info) Description 02/09/2019 Telephone [facility] at Home [address] [phone] Pcp, No [address] [place] [address] Social History Tobacco Use Types Packs/Day Years [...]
--- OUTSIDE RECORDS SUMMARY | 2024-11-30 08:56 | XMS_ITS | Clinical Summary ---
Author Organization [facility] Address [address] [place] [address] Care Team Providers Care Health Psychologist Name Role Phone Unavailable Primary Care Provider [...]
--- OUTSIDE RECORDS SUMMARY | 2024-11-30 08:56 | XMS_ITS | Encounter Summary ---
Author Organization [facility] Address [address] [place] [address] Care Team Providers Care Managing Broker Name Role Phone Unavailable Primary Care Provider Unavailabl e Encounter Details Date Type Department Care Team (Late st Contact Info) Description 02/19/2019 Telephone [facility] at Home [address] [phone] Pcp, No [address] [place] [address] Social History Tobacco Use Types Packs/Day Years [...]
== END 2024-11-30 09:00 | disposition home or self-care (01) ==
LOC: HO.HUSH 08:41
PROVIDERS: PCP Internal Medicine Medical Oncology; Visit Provider Urology
DX: C61 Malignant neoplasm of prostate (principal)

== ENCOUNTER → 2024-11-30 08:41 | Outpatient (BNVA) | payer MEDICARE, SELFPAY | PROVIDERS: PCP Internal Medicine Medical Oncology; Visit Provider Urology | DX: C61 Malignant neoplasm of prostate (principal) | CPT/HCPCS: 96402; J9155 ==

== ENCOUNTER 2025-01-04 08:41 | Outpatient (AMB) | payer MEDICARE, SELFPAY ==
--- OUTSIDE RECORDS SUMMARY | 2025-01-04 08:48 | XMS_ITS | Encounter Summary ---
Author Organization [facility] Address [address] [place] [address] Care Team Providers Care Black Jack Dealer Name Role Phone Unavailable Primary Care Provider Unavailabl e Encounter Details Date Type Department Care Team (Late st Contact Info) Description 02/09/2019 Telephone [facility] at Home [address] [phone] Pcp, No [address] [place] [address] Social History Tobacco Use Types Packs/Day Years Used Date Smoking Tobacco: Never Assessed Sex and Gender Information Value Date Recorded Sex Assigned at Not on file Legal Sex Male 11:40 AM EDT Gender Identity Not on file Sexual Orientation Not on file documented as of this encounter Plan of Treatment Not on file documented as of this encounter Visit Diagnoses Not on filedocumented in this encounter
--- OUTSIDE RECORDS SUMMARY | 2025-01-04 08:48 | XMS_ITS | Encounter Summary ---
Author Organization [facility] Address [address] [place] [address] Care Team Providers Care Day Care Provider Name Role Phone Unavailable Primary Care Provider Unavailabl e Encounter Details Date Type Department Care Team (Late st Contact Info) Description 02/19/2019 Telephone [facility] at Home [address] [phone] Pcp, No [address] [place] [address] Social History Tobacco Use Types Packs/Day Years [...]
--- OUTSIDE RECORDS SUMMARY | 2025-01-04 08:48 | XMS_ITS | Clinical Summary ---
Author Organization [facility] Address [address] [place] [address] Care Team Providers Care Slumber Room Attendant Name Role Phone Brandin Munoz MD Primary Care Provider [phone] Social History Tobacco Use Types Packs/Day Years [...] - 2023-2 5 season) 2024 Influenza Vaccine (Season Ended) 2025 RSV Immunization Adult Patie nts (1 - 1-dose 75+ series) 02/21/2031 HIB [...] age to complete this topic Meningococcal B Vaccine Aged Out No l onger eligible based on patient's age to complete this topic RSV Immunization Patients Un carmine 20 months Aged Out No longer eligible b ased on patient's age to complete this topic Varicella Vaccines Aged Out No longer eligible based on patient's age to complete this topic Care Teams Slumber Room Attendant Relationship Specialty Start Date End Date Brandin Munoz MD PCP - General Oncology 07/10/18
--- OUTSIDE RECORDS SUMMARY | 2025-01-04 08:48 | XMS_ITS | Clinical Summary ---
Author Organization [facility] Address [address] [place] [address] Care Team Providers Care Sizer Hand Name Role Phone Brandin Munoz MD Primary Care Provider [phone] Allergies No known active allergies Medications No [...] age to complete this topic Care Teams Sizer Hand Relationship Specialty Start Date End Date Brandin Munoz MD [address] [phone] PCP - General Oncology 07/10/18
--- OUTSIDE RECORDS SUMMARY | 2025-01-04 08:48 | XMS_ITS | Clinical Summary ---
Author Organization [facility] Address [address] [place] [address] Care Team Providers Care Animal Groomer Name Role Phone Unavailable Primary Care Provider Unavailabl e Allergies No known active allergies Medications acetaminophen (TYLENOL) 325 MG tablet Take 975 mg by mouth 4 (four) times a day as needed for mild pain. 9 Active amiODARONE (PACERONE) 200 MG tablet Take 200 mg by mouth 2 (two) times a day. Active aspirin 81 MG chewable tablet Chew 81 mg daily. Active docusate sodium (COLACE) 100 MG capsule Take 100 mg by mouth 2 (two) times a day. Active furosemide (LASIX) 20 MG tablet Take 20 mg by mouth daily. Active metoPROLOL TARTRATE (LOPRESSOR) 25 MG tablet Take 25 mg by mouth 3 (three) times a day. Active oxyCODONE (ROXICODONE) 5 MG immediate release tablet Take 5 mg by mouth 4 times daily (every 6 hours) as needed for moderate pain or severe pain. Active potassium chloride (K-TAB) 20 MEQ CR tablet Take 20 mEq by mouth daily. Active atorvastatin (LIPITOR) 40 MG tablet Take 40 mg by mouth daily. Active lanreotide (SOMATULINE DEPOT) 60 MG/0.2ML Solution injection Inject 60 mg under the skin every 28 days (4 weeks). md does injection at office Active Social History [...] on patient's age to complete this topic Insurance HMO
--- NOTE | 2025-01-04 08:58 | AM.OFFVISNUR ---
Intake Visit Reasons: Firmagon Allergies No Known Allergies Allergy (Verified 08/13/24 10:56) Office Meds degarelix 80 mg subcutaneous solution Performing Provider: Waylon Luna MD [place] [facility] [place] [facility] Administered by: Seth Winchester LPN on 01/04/25 08:59 Dose Route Admin Location Dispensed Lot Number Expiration Date NDC Button Tacker 80 mg subcut left abd 80 mg [id number] 09/12/26 [address]-1 [facility] Assessment & Plan Assessment & Plan Orders: Orders AMB Degarelix Injection Practice Supplied Today C61 - Malignant neoplasm of prostate Medications: New degarelix 80 mg subcut ONCE 1 ea 0RF C61 - Malignant neoplasm of prostate Coding
== END 2025-01-04 09:00 | disposition home or self-care (01) ==
LOC: HO.HUSH 08:42
PROVIDERS: PCP Internal Medicine Medical Oncology; Visit Provider Urology
DX: C61 Malignant neoplasm of prostate (principal)

== ENCOUNTER → 2025-01-04 08:41 | Outpatient (BNVA) | payer MEDICARE, SELFPAY | PROVIDERS: PCP Internal Medicine Medical Oncology; Visit Provider Urology | DX: C61 Malignant neoplasm of prostate (principal) | CPT/HCPCS: 96402; J9155 ==

== ENCOUNTER 2025-02-11 08:37 | Outpatient (AMB) | payer MEDICARE, SELFPAY ==
--- NOTE | 2025-02-11 08:51 | AM.OFFVISNUR ---
Intake Visit Reasons: Raynaagon(PA Set) Allergies No Known Allergies Allergy (Verified 08/13/24 10:56) Office Meds degarelix 80 mg subcutaneous solution Performing Provider: Waylon Luna MD [facility] [place] [facility] Administered by: Sharri Fay RN on 02/11/25 08:51 Dose Route Admin Location Dispensed Lot Number Expiration Date [facility] Phosphatic Fertilizer Supervisor 80 mg subcut right lower abdomen 80 mg [id number] 09/12/26 [address]-[address] [facility] Assessment & Plan Assessment & Plan Orders: Orders AMB Degarelix Injection Practice Supplied Today C61 - Malignant neoplasm of prostate Medications: New degarelix 80 mg subcut ONCE 1 ea 0RF C61 - Malignant neoplasm of prostate Coding
--- OUTSIDE RECORDS SUMMARY | 2025-02-11 08:55 | XMS_ITS ---
Author Organization Brandin Munoz III, MD Address [address] [place] [address] [place] [address] Care Team Providers Care Paper Products Inspector Name Role Phone Brandin Munoz Primary Care Provider REASON FOR VISIT Message Social History Sex Assigned At : Social History Observation Description Sex Assigned At Male Encounters Encounter Location Date Provider Diagnosis Brandin Munoz III, MD [address] [place] [address] [place] [address] 12/25/2024 Brandin Munoz Plan Of Treatment Next Appt Details Provider Name:Brandin Munoz, 04/09/2025 02:00:00 PM, [address] [place] [address] [place], [phone], Progress Notes * Ibrahima HESSDOB:[birth year] (69 yo M)Acc No.[id number]:12/25/2024 Patient:?Da HESS :1955???Age:69 Y???Sex:Male Address:[place] [address] * true * Date:? Generated for Printi ng/Faxing/eTransmitting on:?02/11/2025 08:54 AM EDT
== END 2025-02-11 08:54 | disposition home or self-care (01) ==
LOC: HO.HUSH 08:38
PROVIDERS: PCP Internal Medicine Medical Oncology; Visit Provider Urology
DX: C61 Malignant neoplasm of prostate (principal)

== ENCOUNTER → 2025-02-11 08:37 | Outpatient (BNVA) | payer MEDICARE, SELFPAY | PROVIDERS: PCP Internal Medicine Medical Oncology; Visit Provider Urology | DX: C61 Malignant neoplasm of prostate (principal) | CPT/HCPCS: 96402; J9155 ==

== ENCOUNTER 2025-03-14 10:21 | Outpatient (AMB) | payer MEDICARE, SELFPAY ==
--- OUTSIDE RECORDS SUMMARY | 2025-02-12 13:30 | XMS_ITS ---
Author Organization Brandin Munoz III, MD Address [address] [place] [address] [place] [address] Care Team Providers Care Offset Lithographic Press Operator Name Role Phone Brandin Munoz Primary Care Provider REASON FOR VISIT sandostatin injection Social History Sex Assigned At : Social History Observation Description Sex Assigned At Male Encounters Encounter Location Date Provider Diagnosis Brandin Munoz III, MD [address] [place] [address] [place] [phone] 02/12/2025 Brandin Munoz Plan Of Treatment Next Appt Details Provider Name:Brandin Munoz, 04/09/2025 02:00:00 PM, [address] [place] [address] [place], [address], Progress Notes * Ibrahima HESSDOB:[birth year] (70 yo M)Acc No.[id number]:02/12/2025 Patient: Sarah Ibrahima CHAN Provider: Ale Munoz MD :1955 A ge:69 Y S ex:Male Date:02/12/2025 Address: [address] [id number] Subjective: * Chief Complaints: * 1 . Sandostatin injection. * Medical History: Objective: * Vitals: Assessment: Plan: * Treatment: * Images: * The named appointment provid er may or may not be the originator of this progress note, and it is not deemed complete until electronically signed by the appointment provider. Sign off status: Pending * Provider: Ale Munoz MD Date: 0 02/12/2025 Generated for Noah parsons/Jaylene/Regla on: 0 03/14/2025 11:03 AM EDT
--- NOTE | 2025-03-14 10:21 | A.OFFVIS_ITS ---
Intake Visit Reasons: 6m/firmagon Intake Note: Patient is present for 6 mo follow up / firmagon inj urology meds: Tadalafil BT: none Barrel Loader And Cleaner Required: No Accompanied by: Self / Same As Patient Allergies No Known Allergies Allergy (Verified 03/14/25 10:23) HPI Comments Details: Ibrahima is a very pleasant male. He is a patient of Dr. Munoz. 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 Carlitos Mcconnell radiation - completed 11/06 7900 Gy to prostate and pelvis - SpaceOAR Histologic grade: RBL 100%, RBM 50%, RML 30%, RMM 40% Sean score: 4+3=7 % of pattern 4: 75% % of pattern 5: 0 Number cores positive: 4 Total number of cores: 12 % of tissue involved: Approximately 20% of all tissue examined Periprostatic fat inv.: Not identified Seminal vesicle inv.: Not identified Perineural inv.: Present LVI: Not identified Peyronie's disease Progressive with left bend on penis Sufficient for intercourse Decreased rigidity and does de tumescence rapidly Good response to antioxidant + low-dose PDE5 PFSH Medical History (Updated 08/13/24 @ 11:31 by Justa Reynolds, RN) RBBB Pulmonary nodules Neuroendocrine tumor Liver mass Insomnia Hematuria Ex-smoker Carcinoid heart disease CAD (coronary artery disease) BPH (benign prostatic hyperplasia) Diabetes HTN (hypertension) Prostate cancer Tricuspid insufficiency 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 Colon polyps Overweight Hyperlipidemia Surgical History (Updated 08/13/24 @ 10:56 by Justa Reynolds, RN) H/O wisdom tooth extraction H/O endoscopy H/O colonoscopy History of surgery of liver History of tricuspid valve replacement Social History Are you a primary acute care nursing assistant to a significant other at home: No Do you presently have visiting nurse or other home services: No Patient Tobacco Use Status: Former Tobacco user Tobacco use type: Cigarette Cigarettes Per Day: 15 Years Smoked: 24 Review of Systems Const Denies chills and Denies fever(s) Card Reports no additional complaints and Denies syncope Resp Denies cough GI Denies abdominal pain and Denies heartburn Reports as per HPI and Denies change in libido Neuro Denies syncope Psych Denies change in libido Endo Denies change in libido Physical Exam Const General: cooperative, healthy appearing, comfortable and no acute distress Orientation/consciousness: patient oriented x3 HEENT Face and sinus: Yes normal facial exam Mouth: moist mucous membranes Neck Neck: Yes normal visual inspection, Yes full ROM and Yes trachea midline Chest Chest palpation & inspection: normal inspection of the chest Resp Effort & Inspection: normal respiratory effort, able to speak in complete sentences and no respiratory distress GI Inspection: Yes normal to inspection Back/Spine/Pelvis Cervical Spine: normal cervical lordosis Thoracic/Lumbar Spine: thoracic and lumbar spine normal to inspection Skin General skin exam: no rashes or lesions noted Neuro General: patient oriented x3, gait normal, tone normal and moves all extremities Extrem General: Yes normal to inspection and Yes capillary refill normal Assessment & Plan Assessment & Plan (1) Erectile dysfunction: Code(s): N52.9 - Male erectile dysfunction, unspecified Category: Medical (2) Prostate cancer: Code(s): C61 - Malignant neoplasm of prostate Category: Medical Plan Four month follow-up Orders: Orders AMB Urinalysis Automated Today Z13.9 - Encounter for screening, unspecified Patient Instructions: This note is constructed using voice recognition software. While every effort has been made to ensure accuracy relocation coordinator errors may have been included. Imaging studies, laboratory and physical exam results were discussed and reviewed in detail. No major barriers to patient understanding were identified. An opportunity to ask questions regarding the treatment plan was provided. All questions were answered. The patient expressed understanding and agreement with the above treatment plan. The patient is aware they should contact our office by phone for worsening of their current condition or the appearance of new urologic symptoms. Compliance is encouraged with any medications and followup testing that is ordered. It is a privilege to participate in the urologic care of your patient. If you have any questions or concerns regarding treatment for the above conditions, or other urologic issues, please do not hesitate to contact me. The office telephone contact is [phone]. Sincerely, Dr Waylon Luna MD, [facility] - Urology Compassionate Specialist Care for the Genitourinary System Coding Level of Care Code Est Pt Level 3 (47198) Complex EM visit Add On G2211 Diagnoses Erectile dysfunction N52.9 Prostate cancer C61
--- OUTSIDE RECORDS SUMMARY | 2025-03-14 11:03 | XMS_ITS | Encounter Summary ---
Author Organization [facility] Address [address] [place] [address] Care Team Providers Care Caregiver Assisted Living Name Role Phone Unavailable Primary Care Provider Unavailabl e Encounter Details Date Type Department Care Team (Late st Contact Info) Description 02/19/2019 Telephone [facility] at Home [address] [phone] Pcp, No [address] [place] [address] Social History Tobacco Use Types Packs/Day Years [...]
--- OUTSIDE RECORDS SUMMARY | 2025-03-14 11:03 | XMS_ITS | Clinical Summary ---
Author Organization [facility] Address [address] [place] [address] Care Team Providers Care Fagot Maker Name Role Phone Brandin Munoz MD Primary Care Provider [phone] Allergies No known active allergies Medications No [...] 62 07/10/2018 7:45 PM EDT Temperature 36 C (96.8 F) 07/10/2018 6:39 PM EDT Respiratory Rate 16 [...] of 1 - PCV) 02/21/2021 Influenza Vaccine (Season Ended) 2025 RSV Adult > 60+ Yrs or Pregn ant (1 - 1-dose 75+ series) 02/21/2031 Hepatitis B Vaccines Aged Out No long er eligible based on patient's age to complete this topic RSV Ped < 20 months Aged Out No longe r eligible based on patient's age to complete this topic Care Teams Fagot Maker Relationship Specialty Start Date End Date Brandin Munoz MD [address] [phone] PCP - General Oncology 07/10/18
--- OUTSIDE RECORDS SUMMARY | 2025-03-14 11:03 | XMS_ITS ---
Author Name [facility] Organization Unknown Care Team Organization Name Specialty Phone Email Start Date End Da te [facility] CCDA 025 [facility] ADT 02/23/20 25 [facility] 025 02/13/2025 [facility] [employer] 11/15/2023 02/12/2024 [facility] [place] ADT 04/22/20 23 2025 [facility] CCDA 023 02/09/2025
== END 2025-03-14 11:11 | disposition home or self-care (01) ==
LOC: HO.HUSH 10:21
PROVIDERS: PCP Internal Medicine Medical Oncology; Visit Provider Urology
DX: N52.9 Male erectile dysfunction, unspecified (principal); C61 Malignant neoplasm of prostate; Z13.9 Encounter for screening, unspecified
CPT/HCPCS: 99213; G2211

== ENCOUNTER → 2025-03-14 10:21 | Outpatient (BNVA) | payer MEDICARE, SELFPAY | PROVIDERS: PCP Internal Medicine Medical Oncology; Visit Provider Urology | DX: C61 Malignant neoplasm of prostate (principal); N52.9 Male erectile dysfunction, unspecified | CPT/HCPCS: 81003; 96402; 99212; J9155 ==

== ENCOUNTER 2025-07-16 11:15 | Outpatient (AMB) | payer MEDICARE, SELFPAY ==
--- NOTE | 2025-07-16 11:19 | MHC.OFFVIS ---
Intake Visit Reasons: 4m/labs Intake Note: Patient is present for 4 mo follow up urology meds: Tadalafil BT: none Labs done :07/05/25 Total Testosterone <3, PSA <0.1 Process Analyst Required: No Accompanied by: Self / Same As Patient Allergies No Known Allergies Allergy (Verified 07/16/25 11:20) HPI Comments Details: Ibrahima is a very pleasant male. He is a patient of Dr. Munoz. 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 Carlitos Mcconnell radiation - completed 11/06 7900 Gy to prostate and pelvis - SpaceOAR Histologic grade: RBL 100%, RBM 50%, RML 30%, RMM 40% [place] score: 4+3=7 % of pattern 4: 75% % of pattern 5: 0 Number cores positive: 4 Total number of cores: 12 % of tissue involved: Approximately 20% of all tissue examined Periprostatic fat inv.: Not identified Seminal vesicle inv.: Not identified Perineural inv.: Present LVI: Not identified Peyronie's disease Progressive with left bend on penis Sufficient for intercourse Decreased rigidity and does de tumescence rapidly Good response to antioxidant + low-dose PDE5 PFSH Medical History (Updated 08/13/24 @ 11:31 by Justa Ryenolds RN) RBBB Pulmonary nodules Neuroendocrine tumor Liver mass Insomnia Hematuria Ex-smoker Carcinoid heart disease CAD (coronary artery disease) BPH (benign prostatic hyperplasia) Diabetes HTN (hypertension) Prostate cancer Tricuspid insufficiency 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 Colon polyps Overweight Hyperlipidemia Surgical History (Updated 08/13/24 @ 10:56 by Justa Reynolds, ROSE MARIE) H/O wisdom tooth extraction H/O endoscopy H/O colonoscopy History of surgery of liver History of tricuspid valve replacement Social History Are you a primary caretaker resort to a significant other at home: No Do you presently have visiting nurse or other home services: No Patient Tobacco Use Status: Former Tobacco user Tobacco use type: Cigarette Cigarettes Per Day: 15 Years Smoked: 24 Review of Systems Const Denies chills and Denies fever(s) Card Reports no additional complaints and Denies syncope Resp Denies cough GI Denies abdominal pain and Denies heartburn Reports as per HPI and Denies change in libido Neuro Denies syncope Psych Denies change in libido Endo Denies change in libido Physical Exam Const General: cooperative, healthy appearing, comfortable and no acute distress Orientation/consciousness: patient oriented x3 HEENT Face and sinus: Yes normal facial exam Mouth: moist mucous membranes Neck Neck: Yes normal visual inspection, Yes full ROM and Yes trachea midline Chest Chest palpation & inspection: normal inspection of the chest Resp Effort & Inspection: normal respiratory effort, able to speak in complete sentences and no respiratory distress GI Inspection: Yes normal to inspection Back/Spine/Pelvis Cervical Spine: normal cervical lordosis Thoracic/Lumbar Spine: thoracic and lumbar spine normal to inspection Skin General skin exam: no rashes or lesions noted Neuro General: patient oriented x3, gait normal, tone normal and moves all extremities Extrem General: Yes normal to inspection and Yes capillary refill normal Assessment & Plan Assessment & Plan (1) Erectile dysfunction: Code(s): N52.9 - Male erectile dysfunction, unspecified Category: Medical (2) Prostate cancer: Code(s): C61 - Malignant neoplasm of prostate Category: Medical Plan Four month follow-up lab work Orders: Orders Prostate Specific Antigen 4 Months C61 - Malignant neoplasm of prostate Testosterone, Total 4 Months C61 - Malignant neoplasm of prostate Patient Instructions: This note is constructed using voice recognition software. While every effort has been made to ensure accuracy shot core drill operator helper errors may have been included. Imaging studies, laboratory and physical exam results were discussed and reviewed in detail. No major barriers to patient understanding were identified. An opportunity to ask questions regarding the treatment plan was provided. All questions were answered. The patient expressed understanding and agreement with the above treatment plan. The patient is aware they should contact our office by phone for worsening of their current condition or the appearance of new urologic symptoms. Compliance is encouraged with any medications and followup testing that is ordered. It is a privilege to participate in the urologic care of your patient. If you have any questions or concerns regarding treatment for the above conditions, or other urologic issues, please do not hesitate to contact me. The office telephone contact is [phone]. Sincerely, Dr Waylon Luna MD, [facility] - Urology Compassionate Specialist Care for the Genitourinary System Coding Level of Care Code Est Pt Level 3 (63984) Complex EM visit Add On G2211 Diagnoses Erectile dysfunction N52.9 Prostate cancer C61
== END 2025-07-16 12:09 | disposition home or self-care (01) ==
LOC: HO.HUSH 11:15
PROVIDERS: PCP Internal Medicine Medical Oncology; Visit Provider Urology
DX: N52.9 Male erectile dysfunction, unspecified (principal); C61 Malignant neoplasm of prostate
CPT/HCPCS: 99213; G2211

== ENCOUNTER → 2025-07-16 11:15 | Outpatient (BNVA) | payer MEDICARE, SELFPAY | PROVIDERS: PCP Internal Medicine Medical Oncology; Visit Provider Urology | DX: N52.9 Male erectile dysfunction, unspecified (principal); N48.6 Induration penis plastica; C61 Malignant neoplasm of prostate | CPT/HCPCS: 99212 ==